=== PATIENT | male | born 1965 | race Caucasian/White ===

== ENCOUNTER 2022-08-02 17:24 | Outpatient (CLI) | payer MEDICARE, MEDICAID, SELFPAY | END 2022-08-02 17:25 | disposition home or self-care (01) | LOC: AMB 08-04 07:02 | PROVIDERS: PCP Family Medicine; Visit Provider Family Medicine | DX: R55 Syncope and collapse (principal) | CPT/HCPCS: A0425; A0427 ==

== ENCOUNTER 2022-08-02 17:54 | Observation (INO) | payer MEDICARE, MEDICAID, SELFPAY ==
[2022-08-02] VITALS (36 sets, daily range): BP systolic 87–131; BP diastolic 59–98; PULSE 92–109; RESP 24; TEMP 36.6; O2SAT 89–98; BMI 28.1
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
--- NOTE | 2022-08-02 18:32 | CRLHL7_ITS ---
For Patients: As a result of the Cures Act, medical imaging exams and procedure reports are released immediately into your electronic medical record. You may view this report before your referring provider. If you have questions, please contact your health care provider. INDICATION: Syncope. TECHNIQUE: Chest 1 view. COMPARISON: None. FINDINGS: Probable tiny right pleural effusion. Subtle patchy opacity in the right lung base suspicious for pneumonia. Minimal left basilar atelectasis. No pneumothorax. Normal heart size and pulmonary vascularity. The bones are unremarkable. IMPRESSION: 1. Subtle patchy opacity in the right lung base suspicious for pneumonia. 2. Probable tiny right pleural effusion. Dictated by Robina Soto MD @ 08/02/2022 7:58:33 PM (Electronically Signed)
--- NOTE | 2022-08-02 18:32 | CRLHL7_ITS ---
For Patients: As a result of the Century Cures Act, medical imaging exams and procedure reports are released immediately into your electronic medical record. You may view this report before your referring provider. If you have questions, please contact your health care provider. INDICATION: Syncope. TECHNIQUE: Noncontrast CT images acquired through the brain. COMPARISON: None. FINDINGS: Motion artifact degrades image quality. The ventricles and sulci are within normal limits for patient age. No mass effect or midline shift. The colby-white differentiation is maintained. No acute intracranial hemorrhage or pathologic extra-axial fluid collection. Mild atherosclerotic calcifications in the carotid siphons. The globes are symmetric. The calvarium is intact. Air-fluid levels and mucosal thickening in the maxillary sinuses, more pronounced on the left. The mastoid air cells are clear. IMPRESSION: 1. No acute intracranial hemorrhage or mass effect. 2. Air-fluid levels and mucosal thickening in the maxillary sinuses, more pronounced on the left, can be seen in the setting of acute sinusitis. Please note that all CT scans at this facility use dose modulation, iterative reconstruction, and/or weight-based dosing when appropriate to reduce radiation dose to as low as reasonably achievable. Dictated by Lorne Medley MD @ 08/02/2022 8:09:51 PM (Electronically Signed)
[2022-08-02 19:34] LABS: Lactate* 1.7 mmol/L (0.5-1.9)
[2022-08-02 19:40] LABS: Hematocrit 42.3 % (37.0-53.0); Hemoglobin* 14.6 gm/dL (13.5-17.5); Lymphocytes Percent Auto 8.2 % (20-44); Mean Corpuscular HGB Conc 35 gm/dL (32-36); Mean Corpuscular Hemoglobin 31 pg (26-34); Mean Corpuscular Volume 91 fL (80-100); Neutrophils Percent Auto 86.4 % (42.0-72.0); Platelet Count* 223 K/uL (140-440); Red Blood Count 4.66 m/uL (4.30-5.90); White Blood Count* 17.35 K/uL (4.50-11.00)
[2022-08-02 19:41] LABS: Basophils Percent Auto 0.2 % (0.0-3.0); Eosinophils Percent Auto 0.1 % (0.0-7.0); Immature Granulocytes Pct Auto 0.2 %; Monocytes Percent Auto 4.9 % (0.0-11.0); Slide Review Reflex No
[2022-08-02 19:42] LABS: Troponin, Point-of-Care* 0.01 ng/ml (0.01-0.04)
[2022-08-02 20:05] LABS: Magnesium* 1.7 mg/dL (1.5-2.6)
[2022-08-02 20:06] LABS: D Dimer Quantitative* 1.53 ug/ml (0.00-0.50)
--- NOTE | 2022-08-02 20:14 | ED.NURSE ---
Patient was able to ambulate to the restroom without dizziness
[2022-08-02 20:16] LABS: Troponin I* 0.03 ng/mL (0.01-0.04)
--- NOTE | 2022-08-02 20:19 | CRLHL7_ITS ---
For Patients: As a result of the Century Cures Act, medical imaging exams and procedure reports are released immediately into your electronic medical record. You may view this report before your referring provider. If you have questions, please contact your health care provider. INDICATION: Syncope, elevated D-dimer.. TECHNIQUE: CT chest PE was acquired with 95 cc Isovue 370 IV contrast. COMPARISON: None. FINDINGS: Heart and vasculature: Contrast opacification of the pulmonary arterial tree is adequate. No sign of pulmonary embolism. Heart size is normal. Thoracic aorta and pulmonary artery are normal in caliber. Lungs and pleura: Diffuse nodular ground-glass opacities are identified especially in the right hemithorax. A few smaller nodular ground-glass opacities noted in the left hemithorax. Bronchial wall thickening is noted. No pleural effusions, pleural thickening, or pneumothorax. Lymph nodes/mediastinum: Right hilar adenopathy is noted. Subcarinal adenopathy is also identified. Chest wall: No masses. Upper abdomen: Hypodense lesion in the left hepatic lobe likely cyst. Diffuse nodular thickening of the right adrenal gland. Bones: Unremarkable for age. IMPRESSION: Diffuse nodular ground-glass opacities in the right hemithorax likely related to infectious/inflammatory etiology. Diffuse mild bronchial wall thickening is also noted likely related to infectious/inflammatory etiology as well. No pulmonary embolism identified. Please note that all CT scans at this facility use dose modulation, iterative reconstruction, and/or weight-based dosing when appropriate to reduce radiation dose to as low as reasonably achievable. Dictated by Radha Finch MD @ 08/02/2022 9:55:58 PM (Electronically Signed)
[2022-08-02 20:22] LABS: Appearance Urine Clear (Clear); Bilirubin Urine Negative (Negative); Blood Urine Trace-intact (Negative); Color Urine Yellow (Yellow); Glucose Urine Negative (Negative); Ketones Urine Negative (Negative); Leukocyte Esterase Urine Negative (Negative); Nitrite Urine Negative (Negative); Protein Urine Negative (Negative); Specific Gravity Urine 1.015 (1.000-1.030); Urobilinogen Urine 0.2 (0.2-1.0); pH Urine 5.5 (5.0-8.5)
[2022-08-02 20:25] LABS: Chloride* 99 mmol/L (96-114)
[2022-08-02 20:26] LABS: Potassium* 3.4 mmol/L (3.6-5.1); Sodium* 131 mmol/L (135-149)
[2022-08-02 20:28] LABS: Bilirubin Total* 0.6 mg/dL (0.1-1.5); Carbon Dioxide* 25 mmol/L (20-32); Creatinine* 0.7 mg/dL (0.5-1.5); Est. Creatinine Clearance* 115.36; Estimated Glomerular Filt Rate 109 ml/min
[2022-08-02 20:28] LABS: Amphetamine Screen Urine Negative (Negative); Barbiturate Screen Urine Negative (Negative); Benzodiazepines Screen Urine Negative (Negative); Cocaine Screen Urine Negative (Negative); Methadone Screen Urine Negative (Negative); Methamphetamines Screen Urine Negative (Negative); Opiate Screen Urine Negative (Negative); Oxycodone Screen Urine Negative (Negative); Phencyclidine Screen Urine Negative (Negative)
[2022-08-02 20:29] LABS: Alanine Aminotransferase* 20 U/L (4-50); Alkaline Phosphatase* 69 U/L (40-150); Aspartate Amino Transferase* 22 U/L (12-35); Blood Urea Nitrogen* 15 mg/dL (7-30); Glucose* 118 mg/dL (60-115); Total Protein* 6.5 g/dL (6.0-8.3)
[2022-08-02 20:30] LABS: Calcium* 8.5 mg/dL (8.4-10.6)
[2022-08-02 20:32] LABS: C Reactive Protein* 7.5 mg/dL (0.5-1.0); Ethanol* < 0.01 % (0.01-0.03); NT Pro B Type NatriureticPept* 391 pg/mL
[2022-08-02 20:32] LABS: RBC Urine 0-2 (0-2); WBC Urine 0-2 (0-5)
[2022-08-02 20:37] LABS: Cannabinoid Screen Urine POSITIVE (Negative); Tricyclic Antidepressant Urine POSITIVE (Negative)
[2022-08-02] MEDS: DOXYCYCLINE HYCLATE 100 MG in 0.9 % SODIUM CHLORIDE Mini-bag 100 ML IVPB (23:06)
[2022-08-02 23:20] LABS: SARS PCR* Negative SARS-CoV-2 (Negative)
--- NOTE | 2022-08-02 23:25 | ED.NURSE ---
Jayjay paged for adminision
--- NOTE | 2022-08-02 23:59 | ED.NURSE ---
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
[2022-08-03] VITALS (12 sets, daily range): BP systolic 104–131; BP diastolic 66–86; PULSE 89–109; RESP 12–22; TEMP 36.6–37.1; O2SAT 92–99; BMI 29.2
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
[2022-08-03] MEDS: 0.9 % SODIUM CHLORIDE 1000 ml 1,000 ML 125 ML IV (00:49)
[2022-08-03] MEDS: cefTRIAXone 2 GM in 0.9 % SODIUM CHLORIDE Mini-bag 100 ML IVPB (00:49)
[2022-08-03 06:15] LABS: Hematocrit 39.5 % (37.0-53.0); Hemoglobin* 13.8 gm/dL (13.5-17.5); Mean Corpuscular HGB Conc 35 gm/dL (32-36); Mean Corpuscular Hemoglobin 32 pg (26-34); Mean Corpuscular Volume 91 fL (80-100); Platelet Count* 214 K/uL (140-440); Red Blood Count 4.36 m/uL (4.30-5.90); White Blood Count* 15.39 K/uL (4.50-11.00)
[2022-08-03 06:16] LABS: Basophils Percent Auto 0.2 % (0.0-3.0); Eosinophils Percent Auto 0.2 % (0.0-7.0); Lymphocytes Percent Auto 19.3 % (20-44); Neutrophils Percent Auto 76.2 % (42.0-72.0); Slide Review Reflex No
[2022-08-03 06:17] LABS: Alanine Aminotransferase* 20 U/L (4-50); Albumin* 3.7 g/dL (3.3-5.0); Aspartate Amino Transferase* 19 U/L (12-35); Bilirubin Total* 0.7 mg/dL (0.1-1.5); Blood Urea Nitrogen* 11 mg/dL (7-30); Calcium* 8.4 mg/dL (8.4-10.6); Carbon Dioxide* 26 mmol/L (20-32); Chloride* 102 mmol/L (96-114); Creatinine* 0.7 mg/dL (0.5-1.5); Est. Creatinine Clearance* 115.36; Estimated Glomerular Filt Rate 109 ml/min; Glucose* 136 mg/dL (60-115); Potassium* 3.4 mmol/L (3.6-5.1); Sodium* 135 mmol/L (135-149); Total Protein* 5.9 g/dL (6.0-8.3)
[2022-08-03 06:18] LABS: Alkaline Phosphatase* 68 U/L (40-150)
--- NOTE | 2022-08-03 06:38 | PC.NURSE ---
pleasant and cooperative. Wheezes auscultated in posterior lung burgos. Pt current every day smoker, states he has had a cough for the last week but doesn?t seem to be able to cough anything up. ?Tele = NSR.
--- NOTE | 2022-08-03 08:28 | CRLHL7_ITS ---
For Patients: As a result of the Century Cures Act, medical imaging exams and procedure reports are released immediately into your electronic medical record. You may view this report before your referring provider. If you have questions, please contact your health care provider. Indication: Syncope Technique: Noncontrast sagittal T1 weighted, axial FLAIR, axial T2 weighted, and axial diffusion weighted sequences are provided. Comparison: CT head 08/02/2022 Findings: The ventricles, sulci and gyri are normal size, shape and contour for age. The midline structures are centrally located with no evidence of shift. Few scattered foci of FLAIR signal hyperintensity in the supratentorial white matter are nonspecific but may be secondary to migraine headaches or small vessel disease. No evidence of pathologic susceptibility artifacts. There are no suspicious intra or extra-axial fluid collections. No region of restricted diffusion. Expected flow voids in the cavernous carotids and basilar artery. Moderate mucosal thickening in the left maxillary sinus and mild mucosal thickening in the right maxillary sinus. Air-fluid level in the left maxillary sinus. Rightward deviation of the nasal septum. Findings discussed with Dr. Braber at 1:22 p.m. Impression: 1. No acute intracranial abnormality. 2. Few punctate foci of T2 prolongation in the supratentorial white matter are nonspecific. Differential considerations include sequela of migraine headaches and small vessel disease. 3. Air-fluid level in the left maxillary sinus. Please correlate for acute sinus disease. Dictated by Sean Turcios MD @ 08/03/2022 1:23:02 PM (Electronically Signed)
[2022-08-03] MEDS: hydroCHLOROthiazide 25 MG TABLET PO (09:00)
[2022-08-03] MEDS: VILAZODONE 40 MG PO (09:00)
[2022-08-03] MEDS: BUSPIRONE 10 MG TABLET 30 MG PO ×2 (09:00→20:40)
[2022-08-03] MEDS: OMEPRAZOLE 20 MG CAPSULE DR PO (09:00)
[2022-08-03] MEDS: lisinopriL 5 MG TABLET PO (09:00)
[2022-08-03] MEDS: CLOZAPINE 100 MG TABLET PO ×2 (09:00→20:41)
[2022-08-03 09:05] LABS: Procalcitonin* 1.11 ng/mL (<0.50)
--- NOTE | 2022-08-03 10:51 | P.IMHP_ITS ---
Hospitalist- H&P: HPI History of Present Illness Date Seen: 08/03/22 Chief complaint: Syncope Narrative: Jose Cameron is a 56 year old male that was brought to the ER by EMS on 08/02 after losing consciousness while swimming in a pool yesterday. The event was witnessed in people were able to get him out of the pool immediately, he then regained consciousness and was awake during EMS transport. Patient notices that over the past few weeks has had a few spells of syncope; notes preceding dizziness but no palpitations or chest pain. He has not had any headaches. He is unsure if there have been any alleviating or aggravating factors. ER course and findings: - no acute findings on head CT, possible left-sided sinusitis - elevated white blood count at 17 - diffuse nodular ground-glass opacities in the right hemithorax likely related to infectious/inflammatory etiology (similar findings on recent outpatient CT of the chest, performed as screening) - bifascicular block on EKG in ER Patient was admitted overnight by the hospitalist and telemetry has remained unremarkable. This morning, Jose has no concerns for the hospitalist team. He has not had any recurrence of his syncope, tolerating po intake. Past Medical history updated below after chart review. Patient's PCP is Dr. Byrd at [facility] in [place], Dr. Cornejo in [place] is Psychiatrist. Jose is also under the care of [facility] who helps him with medication management/compliance. Review of Systems Status of ROS: Reports: 10 or more systems reviewed and unremarkable except as noted in History and below Narrative: No headaches or visual changes. No Chest pain. No GI or symptoms. [facility] Medical History (Updated 08/03/22 @ 11:35 by Josephine Barber MD) Tobacco use ?Z72.0 - Tobacco use (ICD-10) Anxiety ?F41.9 - Anxiety disorder, unspecified (ICD-10) Schizophrenia ?F20.9 - Schizophrenia, unspecified (ICD-10) Social History (Updated 08/03/22 @ 10:54 by Josephine Barber MD) Narrative: Jose is single, no children. 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 Smoking about 1ppd, no concerning ETOH use. Brother in [place] would be medical decision maker if needed. Full Code. Smoking Status: Current every day smoker What tobacco products do you use: cigarettes Smoking packs per day: 1 Smoking cigarettes per day: 20.0 Years smoked: 37 Smoking pack-years: 37.00 Do you use any of these nicotine containing products: E-Cigarettes and Vaping Products Second hand tobacco smoke exposure: No How often do you have a drink containing alcohol: monthly or less Alcohol type: beer How many standard drinks containing alcohol do you have on a typical day: 1 or 2 How often do you have six or more drinks on one occasion: Never AUDIT-C Alcohol total score: 1 Non-prescribed substance use: denies use service: No Meds Home Medications and Allergies Home Medication Comments: Patient's medlist was not updated in our computer system: - Clozaril 100mg AM, 250mg PM - Buspar 30mg BID - Desmopression 0.2mg HS - HCTZ 25mg Qd - Lisinopril 5mg Qd - Nexium 20mg Qd - Vilazodone 40mg Qd - Zocor 20mg HS - Calcium/Magnesium/Zinc - B12 1mg daily Allergies Allergy/AdvReac Type Severity Reaction Status Date / Time haloperidol [From Haldol] Allergy Verified 08/02/22 18:01 Exam Narrative: Exam Narrative: GEN: Alert and sitting comfortably in bedside chair, eating breakfast. Nontoxic HEENT: Pupils miotic bilaterally, EOMIs bilaterally, no scleral icterus CV: RRR, soft systolic murmur without concerning features heard at left sternal border, no carotid bruits R: Fine rales right base, no wheezing, air movement adequate Ext: wwp, no concerning edema Skin: No concerning skin lesions or rashes on exposed skin Neuro: No focal deficits, no resting tremor, gait not observed Psych: Appropriate Const: Vital Signs, click to edit/add: Vital Signs - 24 hr 08/02/22 18:02 08/02/22 18:18 08/02/22 18:30 Temperature 97.8 F Pulse Rate 101 H 101 H Pulse Rate [Pulse Oximeter] 102 H Pulse Rate [orthos tatic lying] Pulse Rate [orthos tatic sitting] Pulse Rate [orthos tatic standing] Respiratory Rate 24 Blood Pressure Blood Pressure [Le ft Arm] Blood Pressure [Ri ght Upper Arm] 112/78 Blood Pressure [or thostatic lying Le ft Arm] Blood Pressure [or thostatic sitting Left Arm] Blood Pressure [or thostatic standing Left Arm] Pulse Oximetry 92 93 95 Oxygen Delivery Me thod Nasal Cannula Oxygen Flow Rate 2 08/02/22 18:32 08/02/22 18:33 08/02/22 18:44 Temperature Pulse Rate 99 99 Pulse Rate [Pulse Oximeter] Pulse Rate [orthos tatic lying] 93 Pulse Rate [orthos tatic sitting] 102 H Pulse Rate [orthos tatic standing] 109 H Respiratory Rate Blood Pressure 87/70 L 110/59 L Blood Pressure [Le ft Arm] Blood Pressure [Ri ght Upper Arm] Blood Pressure [or thostatic lying Le ft Arm] 101/65 Blood Pressure [or thostatic sitting Left Arm] 110/90 H Blood Pressure [or thostatic standing Left Arm] 131/98 H Pulse Oximetry 96 96 Oxygen Delivery Me thod Oxygen Flow Rate 08/02/22 18:45 08/02/22 19:02 08/02/22 19:32 Temperature Pulse Rate 97 Pulse Rate [Pulse Oximeter] Pulse Rate [orthos tatic lying] Pulse Rate [orthos tatic sitting] Pulse Rate [orthos tatic standing] Respiratory Rate Blood Pressure 109/63 99/63 Blood Pressure [Le ft Arm] Blood Pressure [Ri ght Upper Arm] Blood Pressure [or thostatic lying Le ft Arm] Blood Pressure [or thostatic sitting Left Arm] Blood Pressure [or thostatic standing Left Arm] Pulse Oximetry 95 Oxygen Delivery Me thod Oxygen Flow Rate 08/02/22 19:43 08/02/22 19:45 08/02/22 19:57 Temperature Pulse Rate 92 93 98 Pulse Rate [Pulse Oximeter] Pulse Rate [orthos tatic lying] Pulse Rate [orthos tatic sitting] Pulse Rate [orthos tatic standing] Respiratory Rate Blood Pressure 101/65 Blood Pressure [Le ft Arm] Blood Pressure [Ri ght Upper Arm] Blood Pressure [or thostatic lying Le ft Arm] Blood Pressure [or thostatic sitting Left Arm] Blood Pressure [or thostatic standing Left Arm] Pulse Oximetry 98 98 94 Oxygen Delivery Me thod Oxygen Flow Rate 08/02/22 19:59 08/02/22 20:00 08/02/22 20:01 Temperature Pulse Rate 106 H 106 H Pulse Rate [Pulse Oximeter] Pulse Rate [orthos tatic lying] Pulse Rate [orthos tatic sitting] Pulse Rate [orthos tatic standing] Respiratory Rate Blood Pressure 110/90 H 131/98 H Blood Pressure [Le ft Arm] Blood Pressure [Ri ght Upper Arm] Blood Pressure [or thostatic lying Le ft Arm] Blood Pressure [or thostatic sitting Left Arm] Blood Pressure [or thostatic standing Left Arm] Pulse Oximetry 94 95 Oxygen Delivery Me thod Oxygen Flow Rate 08/02/22 20:07 08/02/22 20:15 08/02/22 20:30 Temperature Pulse Rate 96 100 100 Pulse Rate [Pulse Oximeter] Pulse Rate [orthos tatic lying] Pulse Rate [orthos tatic sitting] Pulse Rate [orthos tatic standing] Respiratory Rate Blood Pressure Blood Pressure [Le ft Arm] Blood Pressure [Ri ght Upper Arm] Blood Pressure [or thostatic lying Le ft Arm] Blood Pressure [or thostatic sitting Left Arm] Blood Pressure [or thostatic standing Left Arm] Pulse Oximetry 95 92 92 Oxygen Delivery Me thod Oxygen Flow Rate 08/02/22 20:32 08/02/22 20:45 08/02/22 21:00 Temperature Pulse Rate 99 98 98 Pulse Rate [Pulse Oximeter] Pulse Rate [orthos tatic lying] Pulse Rate [orthos tatic sitting] Pulse Rate [orthos tatic standing] Respiratory Rate Blood Pressure 100/68 Blood Pressure [Le ft Arm] Blood Pressure [Ri ght Upper Arm] Blood Pressure [or thostatic lying Le ft Arm] Blood Pressure [or thostatic sitting Left Arm] Blood Pressure [or thostatic standing Left Arm] Pulse Oximetry 93 92 95 Oxygen Delivery Me thod Oxygen Flow Rate 08/02/22 21:01 08/02/22 21:17 08/02/22 21:30 Temperature Pulse Rate 98 95 97 Pulse Rate [Pulse Oximeter] Pulse Rate [orthos tatic lying] Pulse Rate [orthos tatic sitting] Pulse Rate [orthos tatic standing] Respiratory Rate Blood Pressure 112/75 Blood Pressure [Le ft Arm] Blood Pressure [Ri ght Upper Arm] Blood Pressure [or thostatic lying Le ft Arm] Blood Pressure [or thostatic sitting Left Arm] Blood Pressure [or thostatic standing Left Arm] Pulse Oximetry 91 89 94 Oxygen Delivery Me thod Oxygen Flow Rate 08/02/22 21:31 08/02/22 21:45 08/02/22 22:00 Temperature Pulse Rate 96 99 96 Pulse Rate [Pulse Oximeter] Pulse Rate [orthos tatic lying] Pulse Rate [orthos tatic sitting] Pulse Rate [orthos tatic standing] Respiratory Rate Blood Pressure 107/69 Blood Pressure [Le ft Arm] Blood Pressure [Ri ght Upper Arm] Blood Pressure [or thostatic lying Le ft Arm] Blood Pressure [or thostatic sitting Left Arm] Blood Pressure [or thostatic standing Left Arm] Pulse Oximetry 94 95 93 Oxygen Delivery Me thod Oxygen Flow Rate 08/02/22 22:01 08/02/22 22:15 08/02/22 22:30 Temperature Pulse Rate 95 99 102 H Pulse Rate [Pulse Oximeter] Pulse Rate [orthos tatic lying] Pulse Rate [orthos tatic sitting] Pulse Rate [orthos tatic standing] Respiratory Rate Blood Pressure 110/75 Blood Pressure [Le ft Arm] Blood Pressure [Ri ght Upper Arm] Blood Pressure [or thostatic lying Le ft Arm] Blood Pressure [or thostatic sitting Left Arm] Blood Pressure [or thostatic standing Left Arm] Pulse Oximetry 92 91 91 Oxygen Delivery Me thod Oxygen Flow Rate 08/02/22 22:32 08/02/22 22:33 08/02/22 22:45 Temperature Pulse Rate 102 H 103 H 101 H Pulse Rate [Pulse Oximeter] Pulse Rate [orthos tatic lying] Pulse Rate [orthos tatic sitting] Pulse Rate [orthos tatic standing] Respiratory Rate Blood Pressure 109/74 Blood Pressure [Le ft Arm] Blood Pressure [Ri ght Upper Arm] Blood Pressure [or thostatic lying Le ft Arm] Blood Pressure [or thostatic sitting Left Arm] Blood Pressure [or thostatic standing Left Arm] Pulse Oximetry 91 94 91 Oxygen Delivery Me thod Oxygen Flow Rate 08/02/22 23:00 08/02/22 23:02 08/02/22 23:15 Temperature Pulse Rate 104 H 105 H 104 H Pulse Rate [Pulse Oximeter] Pulse Rate [orthos tatic lying] Pulse Rate [orthos tatic sitting] Pulse Rate [orthos tatic standing] Respiratory Rate Blood Pressure 108/62 Blood Pressure [Le ft Arm] Blood Pressure [Ri ght Upper Arm] Blood Pressure [or thostatic lying Le ft Arm] Blood Pressure [or thostatic sitting Left Arm] Blood Pressure [or thostatic standing Left Arm] Pulse Oximetry 92 92 91 Oxygen Delivery Me thod Room Air Oxygen Flow Rate 08/03/22 00:42 08/03/22 00:42 08/03/22 01:25 Temperature 98.6 F Pulse Rate 91 Pulse Rate [Pulse Oximeter] Pulse Rate [orthos tatic lying] Pulse Rate [orthos tatic sitting] Pulse Rate [orthos tatic standing] Respiratory Rate 22 22 Blood Pressure Blood Pressure [Le ft Arm] 108/72 Blood Pressure [Ri ght Upper Arm] Blood Pressure [or thostatic lying Le ft Arm] Blood Pressure [or thostatic sitting Left Arm] Blood Pressure [or thostatic standing Left Arm] Pulse Oximetry 94 96 Oxygen Delivery Me thod Room Air Room Air Oxygen Flow Rate 08/03/22 03:00 08/03/22 07:00 08/03/22 07:00 Temperature 98.3 F Pulse Rate 104 H Pulse Rate [Pulse Oximeter] 89 104 H Pulse Rate [orthos tatic lying] Pulse Rate [orthos tatic sitting] Pulse Rate [orthos tatic standing] Respiratory Rate 22 12 Blood Pressure Blood Pressure [Le ft Arm] 104/66 Blood Pressure [Ri ght Upper Arm] Blood Pressure [or thostatic lying Le ft Arm] Blood Pressure [or thostatic sitting Left Arm] Blood Pressure [or thostatic standing Left Arm] Pulse Oximetry 96 Oxygen Delivery Me thod Room Air Oxygen Flow Rate 08/03/22 07:00 Temperature 98.2 F Pulse Rate Pulse Rate [Pulse Oximeter] 104 H Pulse Rate [orthos tatic lying] Pulse Rate [orthos tatic sitting] Pulse Rate [orthos tatic standing] Respiratory Rate 12 Blood Pressure Blood Pressure [Le ft Arm] 123/85 Blood Pressure [Ri ght Upper Arm] Blood Pressure [or thostatic lying Le ft Arm] Blood Pressure [or thostatic sitting Left Arm] Blood Pressure [or thostatic standing Left Arm] Pulse Oximetry 92 Oxygen Delivery Me thod Room Air Oxygen Flow Rate Hospitalist - H&P: Result Labs Labs: Short CBC 08/02/22 08/03/22 Range/Units 19:20 01:45 WBC 17.35 H 15.39 H (4.50-11.00) K/uL Hgb 14.6 13.8 (13.5-17.5) gm/dL Hct 42.3 39.5 (37.0-53.0) % Plt Count 223 214 (140-440) K/uL BMP 08/02/22 08/03/22 19:20 01:45 Sodium 131 L 135 Potassium 3.4 L 3.4 L Chloride 99 102 Carbon Dioxide 25 26 BUN 15 11 Creatinine 0.7 0.7 Glucose 118 H 136 H Calcium 8.5 8.4 Cardiac Enzymes 08/02/22 Range/Units 19:20 Troponin I 0.03 (0.01-0.04) ng/mL Liver Function 08/02/22 08/03/22 Range/Units 19:20 01:45 Total Bilirubin 0.6 0.7 (0.1-1.5) mg/dL AST 22 19 (12-35) U/L ALT 20 20 (4-50) U/L Alkaline Phosphatase 69 68 (40-150) U/L Albumin 4.0 3.7 (3.3-5.0) g/dL Urine 08/02/22 Range/Units 20:08 Urine Color Yellow (Yellow) Urine Appearance Clear (Clear) Urine pH 5.5 (5.0-8.5) Ur Specific [place] 1.015 (1.000-1.030) Urine Protein Negative (Negative) Urine Glucose (UA) Negative (Negative) Assessment and Plan Assessment and plan (1) Syncope: Problem comment: - ddx: Vasovagal, intracranial process, cardiac source, acute illness - will obtain TTE and MRI today to further evaluate - orthostatic BPs - continue telemetry Status: Acute (2) Sinusitis: Problem comment: - noted on CT 08/02 - on Doxycycline Status: Acute (3) Anxiety: Problem comment: - quiescent Status: Acute (4) Tobacco use: Problem comment: - amenable to nicotine patch while in the hospital Status: Acute (5) Schizophrenia: Problem comment: - quiescent - continue home medications Status: Acute (6) Community acquired pneumonia: Problem comment: - likely new finding given symptoms, elevated WBC, elevated procalcitonin - continue Rocephin and Doxy (08/02) Status: Acute (7) Leukocytosis: Problem comment: - 17 on admission 08/02, likely related to new infectious process - intermittent leukocytosis as an outpatient on chart review (iatrogenic) Status: Acute Plan - continue antibiotics - Lovenox for ppx - studies per above - home when medically stable, possible as early as tomorrow
[2022-08-03] MEDS: NICOTINE 7 MG PATCH 1 PATCH TRANSDERMA (13:09)
[2022-08-03] MEDS: DOXYCYCLINE HYCLATE 100 MG CAPSULE PO ×2 (13:09→20:40)
[2022-08-03] MEDS: SODIUM CHLORIDE 0.9 % (FLUSH) 10 ML SYRINGE 5 ML IVF ×2 (13:10→20:45)
--- NOTE | 2022-08-03 17:54 | PC.NURSE ---
Patient is alert and oriented x 4, on RA, vss with exception of elevated HR, up ad junior, saline locked, tele monitor. BL lung sounds crackly, elevated WBC (17). MRI done this morning and cardio Echo done this afternoon. Orthostatic BP's completed - negative. Patient denies pain, no complaint or episodes of syncope today. Intake and output within excepted levels.
[2022-08-03] MEDS: ENOXAPARIN 40 MG/0.4 ML INJ SUBCUT (20:40)
[2022-08-03] MEDS: CLOZAPINE 50 MG PO (20:43)
[2022-08-03] MEDS: DESMOPRESSIN 0.2 MG TAB PO (20:44)
[2022-08-03] MEDS: FLUTICASONE PROPIONATE NASAL 1 SPRAY NOSTRIL-B (20:46)
[2022-08-03] MEDS: SIMVASTATIN 20 MG TABLET PO (20:47)
[2022-08-04] MEDS: cefTRIAXone 2 GM in 0.9 % SODIUM CHLORIDE Mini-bag 100 ML IVPB (00:28)
[2022-08-04 04:30] VITALS: BP 123/83; PULSE 97; RESP 18; TEMP 36.8; O2SAT 95
--- NOTE | 2022-08-04 06:05 | PC.NURSE ---
End of shift note: Pt alert and oriented, pleasant and conversational during interactions. Vitals stable, on RA, afebrile. HR remained mid to high 90sbpm for majority of shift, up to 120s with movement this AM but not sustained. Tele, SR to ST w/ BBB. Denies pain. Tolerating diet, denies nausea, requested to keep a couple food items at bedside from dinner tray, adequate appetite. Turns in bed independently, and up ad junior. Voiding. Received IV Rocephin this shift. Brother ?Blake? updated at beginning of shift, states he can provide pt ride home from hospital if needed when pt medically cleared, pt aware. Slept for majority of shift. Pt has call light within reach.?
[2022-08-04] MEDS: OMEPRAZOLE 20 MG CAPSULE DR PO (06:32)
[2022-08-04 06:48] LABS: Basophils Percent Auto 0.5 % (0.0-3.0); Eosinophils Percent Auto 0.4 % (0.0-7.0); Hematocrit 40.2 % (37.0-53.0); Hemoglobin* 13.7 gm/dL (13.5-17.5); Immature Granulocytes Pct Auto 0.2 %; Lymphocytes Percent Auto 23.5 % (20-44); Mean Corpuscular HGB Conc 34 gm/dL (32-36); Mean Corpuscular Hemoglobin 31 pg (26-34); Mean Corpuscular Volume 92 fL (80-100); Monocytes Percent Auto 6.6 % (0.0-11.0); Neutrophils Percent Auto 68.8 % (42.0-72.0); Platelet Count* 229 K/uL (140-440); RDW Coefficient of Variation % 14.7 % (11.5-15.5); Red Blood Count 4.36 m/uL (4.30-5.90); White Blood Count* 11.09 K/uL (4.50-11.00)
[2022-08-04 07:00] VITALS: BP 128/90; PULSE 103; PULSE 76; RESP 16; TEMP 36.4; O2SAT 96
[2022-08-04 07:01] LABS: Slide Review Reflex No
[2022-08-04 07:16] LABS: Chloride* 109 mmol/L (96-114)
[2022-08-04 07:17] LABS: Potassium* 3.9 mmol/L (3.6-5.1); Sodium* 140 mmol/L (135-149)
[2022-08-04 07:19] LABS: Creatinine* 0.7 mg/dL (0.5-1.5); Est. Creatinine Clearance* 115.36; Estimated Glomerular Filt Rate 109 ml/min
[2022-08-04 07:20] LABS: Blood Urea Nitrogen* 18 mg/dL (7-30); Calcium* 8.6 mg/dL (8.4-10.6); Carbon Dioxide* 25 mmol/L (20-32); Glucose* 123 mg/dL (60-115)
[2022-08-04 07:37] LABS: Procalcitonin* 0.69 ng/mL (<0.50)
[2022-08-04] MEDS: hydroCHLOROthiazide 25 MG TABLET PO (09:11)
[2022-08-04] MEDS: DOXYCYCLINE HYCLATE 100 MG CAPSULE PO (09:11)
[2022-08-04] MEDS: CYANOCOBALAMIN (VITAMIN B-12) 500 MCG TABLET 1000 MCG PO (09:11)
[2022-08-04] MEDS: BUSPIRONE 10 MG TABLET 30 MG PO (09:11)
[2022-08-04] MEDS: lisinopriL 5 MG TABLET PO (09:11)
[2022-08-04] MEDS: CLOZAPINE 100 MG TAB PO (09:12)
[2022-08-04] MEDS: SODIUM CHLORIDE 0.9 % (FLUSH) 10 ML SYRINGE 5 ML IVF (09:13)
[2022-08-04] MEDS: VILAZODONE 40 MG PO (09:27)
--- NOTE | 2022-08-04 10:25 | PM.DS1 ---
DS: Providers Provider Date Seen: 08/04/22 Date of admission: 08/03/22 00:01 Primary care physician: Prema River MD Admitting Clinician: Selwyn Broussard MD Attending Physician on discharge: Josephine Barber MD Date of Discharge: 08/04/22 DS: Diagnosis Discharge Diagnosis (1) Syncope: Status: Acute Problem details: - ddx: Vasovagal, intracranial process, cardiac source, acute illness - no recurrence of syncope throughout hospital stay - no evidence of orthostatic hypotension, reassuring brain MRI, reassuring TTE (results below) - Patient's telemetry remained normal, repeat EKG Final Impressions: 1. Normal left ventricular size, mildly increased wall thickness, low normal global systolic function, calculated EF of 51 %. 2. Right ventricular cavity size is normal, global systolic RV function is normal. 3. Normal left atrium size. 4. The aortic valve is sclerotic, no stenosis and trivial regurgitation. 5. The mitral valve is sclerotic, trace mitral regurgitation. 6. Tricuspid valve is normal. 7. No pericardial effusion. (2) Sinusitis: Status: Acute Problem details: - noted on CT 08/02 - on Doxycycline (3) Anxiety: Status: Acute Problem details: - quiescent (4) Tobacco use: Status: Acute Problem details: - amenable to nicotine patch while in the hospital, (5) Schizophrenia: Status: Acute Problem details: - quiescent - continue home medications (6) Community acquired pneumonia: Status: Acute Problem details: - likely new finding given cough, elevated WBC, elevated procalcitonin on admission - treated with Rocephin and Doxy while inpatient, discharged (7) Leukocytosis: Status: Acute Problem details: - 17 on admission 08/02, - intermittent leukocytosis as an outpatient on chart review (iatrogenic) DS: Summary Hospital Course Hospital Course: 56-year-old male, admitted to the hospital after syncopal episode. Also noted to have cough, leukocytosis, elevated procalcitonin, abnormality on chest x-ray (although this may be chronic per chart review) - treated with Rocephin and doxycycline. Patient also incidentally noted to have left-sided sinusitis, asymptomatic from this. Regarding syncope: MRI, telemetry, TTE reassuring. Patient had no recurrence of symptoms during stay. Pharmacy noted the possibility of clozapine contributing to symptoms: Recommend outpatient follow-up with PCP and psychiatrist to discuss clozapine dosing and obtain drug level; consider cardiology referral pending symptoms. Patient back to baseline in medically appropriate for discharge on 08/04; discharged home with brother and close follow-up. Status at Discharge Cognitive/behavioral status at discharge: Baseline Functional status at discharge: independent ambulation Overall status at discharge: patient is progressing back to baseline Time Spent with Patient Time attestation: Total time spent providing and/or coordinating discharge services: Time spent: Greater than 30 minutes Exam Narrative: Exam Narrative: GEN: Alert and appropriate, sitting comfortably in bedside chair HEENT: Pupils miotic (unchanged from admission), EOMIs bilaterally, no scleral icterus CV: RRR, No concerning murmurs, rubs, or gallops R: LCTA bilaterally without concerning wheezing, air movement adequate Ext: wwp, no concerning edema Skin: No concerning skin lesions or rashes on exposed skin Neuro: No focal deficits Psych: Appropriate for chronic conditions Const: Vital Signs, click to edit/add: Vital Signs - 24 hr 08/03/22 11:00 08/03/22 12:37 08/03/22 15:00 Temperature 97.9 F Pulse Rate Pulse Rate [Pulse Oximeter] 91 104 H Pulse Rate [orthos tatic lying] 91 Pulse Rate [orthos tatic sitting] 97 Pulse Rate [orthos tatic standing] 102 H Respiratory Rate 12 12 Blood Pressure [Le ft Arm] 126/82 Blood Pressure [or thostatic lying Le ft Arm] 124/82 Blood Pressure [or thostatic sitting Left Arm] 123/84 Blood Pressure [or thostatic standing Left Arm] 127/86 Pulse Oximetry 96 Oxygen Delivery Me thod Room Air 08/03/22 15:00 08/03/22 17:38 08/03/22 19:00 Temperature 98.2 F 98.7 F Pulse Rate 109 H Pulse Rate [Pulse Oximeter] 99 105 H Pulse Rate [orthos tatic lying] Pulse Rate [orthos tatic sitting] Pulse Rate [orthos tatic standing] Respiratory Rate 12 16 Blood Pressure [Le ft Arm] 118/82 131/73 Blood Pressure [or thostatic lying Le ft Arm] Blood Pressure [or thostatic sitting Left Arm] Blood Pressure [or thostatic standing Left Arm] Pulse Oximetry 99 94 Oxygen Delivery Me thod Room Air Room Air 08/03/22 23:00 08/03/22 23:30 08/04/22 04:30 Temperature 98.3 F Pulse Rate 97 Pulse Rate [Pulse Oximeter] 105 H 97 Pulse Rate [orthos tatic lying] Pulse Rate [orthos tatic sitting] Pulse Rate [orthos tatic standing] Respiratory Rate 16 18 Blood Pressure [Le ft Arm] 123/83 Blood Pressure [or thostatic lying Le ft Arm] Blood Pressure [or thostatic sitting Left Arm] Blood Pressure [or thostatic standing Left Arm] Pulse Oximetry 95 Oxygen Delivery Me thod Room Air 08/04/22 07:00 08/04/22 07:00 08/04/22 07:00 Temperature 97.6 F Pulse Rate 103 H Pulse Rate [Pulse Oximeter] 76 76 Pulse Rate [orthos tatic lying] Pulse Rate [orthos tatic sitting] Pulse Rate [orthos tatic standing] Respiratory Rate 16 16 Blood Pressure [Le ft Arm] 128/90 H Blood Pressure [or thostatic lying Le ft Arm] Blood Pressure [or thostatic sitting Left Arm] Blood Pressure [or thostatic standing Left Arm] Pulse Oximetry 96 Oxygen Delivery Me thod Room Air DS: Data Data Completed and Pending Labs on day of discharge: Labs from last 24 hours 08/04/22 06:04 WBC 11.09 H RBC 4.36 Hgb 13.7 Hct 40.2 MCV 92 MCH 31 MCHC 34 RDW Coeff of Graciela 14.7 Plt Count 229 Neut % (Auto) 68.8 Lymph % (Auto) 23.5 [place] % (Auto) 6.6 Eos % (Auto) 0.4 Baso % (Auto) 0.5 Neut # (Auto) 7.60 H Lymph # (Auto) 2.60 [place] # (Auto) 0.70 Eos # (Auto) 0.00 Baso # (Auto) 0.10 Sodium 140 Potassium 3.9 Chloride 109 Carbon Dioxide 25 BUN 18 Creatinine 0.7 Estimated Creat Clear 115.36 Estimated GFR 109 Glucose 123 H Calcium 8.6 Procalcitonin 0.69 H Discharge Plan Discharge Disposition: Home, Self-Care Date of Admission: 08/03/22 00:01 Attending Provider on Discharge: Josephine Barber Primary Care Provider: Prema River Condition: Stable Anticipated Discharge Date/Time: 08/04/22 11:30 Discharge Medications: New doxycycline hyclate 100 mg Capsule 100 mg PO BID 7 Days Qty: 14 0RF lisinopril 5 mg Tablet 5 mg PO DAILY Qty: 30 0RF hydrochlorothiazide 25 mg Tablet 25 mg PO DAILY Qty: 30 0RF esomeprazole magnesium 20 mg capsule,delayed release(DR/EC) 20 mg PO DAILY Qty: 30 0RF Continued clozapine 100 mg tablet 200 mg PO QPM buspirone 30 mg tablet 30 mg PO BID clozapine 50 mg tablet 50 mg PO QPM desmopressin 0.2 mg tablet 0.2 mg PO QPM lisinopril 5 mg tablet 5 mg PO DAILY hydrochlorothiazide 25 mg tablet 25 mg PO DAILY fluticasone propionate 50 mcg/actuation spray,suspension 1 spray INTRANASAL BID esomeprazole magnesium 20 mg capsule,delayed release(DR/EC) 20 mg PO DAILY clozapine 100 mg tablet 100 mg PO QAM Discharge Orders: Discharge Order (Routine); Ordered 08/04/22 Ordered By: Josephine Barber Patient Education: Lisinopril (By mouth), Hydrochlorothiazide (By mouth) (Hydrocot, Microzide), Doxycycline (By mouth), Esomeprazole (By mouth), Syncope (DC) Additional Instructions: You had a NORMAL MRI of your head and a NORMAL ultrasound of your heart - good news! You do have a sinus infection and a mild pneumonia - one antibiotic will help with both of these infections and they were sent to [facility]. No other changes made to your home medications. See Dr. Byrd and Dr. Jimenez as scheduled to talk about your recent hospital stay - your fainting could be related to medications, or you may need to see a Maintenance Manager (quality assurance specialist) in followup. You NEED to return to the hospital if you have any more fainting, chest pain, or other concerns. Activity Level: Activity as Tolerated Discharge Diet: Regular Follow Up Appointments: Estefania Cornejo MD [Referring] - 08/25/22 7:45 am ([facility] for medication check, Clozapine level, with Dr. Cornejo.) Prema River MD [Primary Care Provider] - 08/13/22 11:45 am ([facility] to discuss syncope/possible cardiology referral, with Dr. River.) Forms: [employer] Info Instructions
[2022-08-04 11:03] VITALS: BP 108/62; PULSE 103; RESP 16; TEMP 36.4
[2022-08-04 12:14] VITALS: BP 130/88; PULSE 100; TEMP 36.6; O2SAT 96
[2022-08-04 12:18] VITALS: PULSE 76; RESP 16
--- NOTE | 2022-08-04 13:53 | PC.SOCIAL ---
Met with pt. and confirmed he has a keycase assembler through [facility] Marguerite Chisholm and has [facility] for medication management. [facility] was sent pt.'s discharge orders and summary.
== END 2022-08-04 12:00 | disposition home or self-care (01) ==
LOC: ED 23:45 → MEDSURG 08-03 00:02
PROVIDERS: Family Medicine; Student in an Organized Health Care Education/Training Program; Admitting Provider Family Medicine; Emergency Provider Family Medicine; PCP Family Medicine; Visit Provider Family Medicine
DX: R55 Syncope and collapse (principal); J01.90 Acute sinusitis, unspecified; J18.9 Pneumonia, unspecified organism; R74.8 Abnormal levels of other serum enzymes; D72.829 Elevated white blood cell count, unspecified; R91.8 Other nonspecific abnormal finding of lung field; R00.0 Tachycardia, unspecified; R06.2 Wheezing; R06.02 Shortness of breath; R05.9 Cough, unspecified; I34.0 Nonrheumatic mitral (valve) insufficiency; I45.2 Bifascicular block; F41.9 Anxiety disorder, unspecified; F20.9 Schizophrenia, unspecified; I10 Essential (primary) hypertension; H11.439 Conjunctival hyperemia, unspecified eye; F17.210 Nicotine dependence, cigarettes, uncomplicated; F17.290 Nicotine dependence, other tobacco product, uncomplicated
CPT/HCPCS: 36415; 70450; 70551; 71045; 71260; 80048; 80053; 80306; 81001; 82077; 83605; 83735; 83880; 84145; 84484; 85025; 85379; 86140; 87081; 87449; 87635; 93005; 93306; 94664; 94761; 96361; 96365; 96366; 96367; 96372; 96375; 99285; G0378; A9270; J0696; J1650; J7030; Q9967; S4990

== ENCOUNTER 2024-06-05 13:16 | Outpatient (CLI) | payer MEDICARE, MEDICAID, SELFPAY | END 2024-06-05 13:17 | disposition home or self-care (01) | LOC: AMB 06-07 09:06 | PROVIDERS: PCP Family Medicine; Visit Provider Family Medicine | DX: S09.90XA Unspecified injury of head, initial encounter (principal); W01.0XXA Fall on same level from slipping, tripping and stumbling without subsequent striking against object, initial encounter; Y92.513 Shop (commercial) as the place of occurrence of the external cause | CPT/HCPCS: A0998 ==

== ENCOUNTER 2025-03-10 10:05 | Emergency (ER) | payer MEDICARE, MEDICAID, SELFPAY ==
--- OUTSIDE RECORDS SUMMARY | 2025-03-10 10:07 | XMS_ITS | CCD ---
Author Organization Unknown Care Team Providers Care Certified Pediatric Nurse Practitioner Name Role Phone Branch Manager, [place] Primary Care Provider Unava ilable Unavailable Chronic Care Management Unavaila ble Summary Purpose [employer] Insurance Providers Payer name Policy type / Coverage type Covered alliance party ID Effective Begin Date Effective End Date [place] Part B [id number] Unknown Unknown [employer] Medicare Part B [id number] Unknown Unknown Family History Family History data not found Medication Administered No Medication Administered data Medical Equipment No Medical Equipment data Assessments No Assessment data Reason For Visit No Reason For Visit data Review of Systems No Review of Systems data Physical Exam No Physical Exam data History of Present Illness No History of Present Illness data Advance Directives No Advance Directive data
--- OUTSIDE RECORDS SUMMARY | 2025-03-10 10:08 | XMS_ITS | Clinical Summary ---
Author Organization [employer] [facility] Address [address] [place] [id number] Care Team Providers Care Chief Security Officer Name Role Phone Prema River MD Unavailable Prema River MD Primary Care Provider [phone] Allergies Active Allergy Reactions Criticality Noted Date Comments Aripiprazole Other - Describe In Comment Field 02/16/2021 Pt states 'caused me to lose my mind Haloperidol 10/15/2009 neuroleptic malignant syndrome Medications inhalational spacing deviceIndications: COPD with chronic bronchitis (HC) For home use. 1 Each 01/15/20 21 Active blood sugar diagnostic stripIndications:I mpaired glucose tolerance Dispense item covered by pt ins. prediabetes 100 Each 3 07/21/19 24 Active albuterol HFA (PRO-AIR; VENTOLIN; PROVENTIL) 90 mcg/actuation inhalerIndications :Acute dyspnea,COPD exacerbation (HC) Inhale 2 Puffs by mouth 4 times daily if needed for Wheezing 1st choice. 1 Each 05/31/19 25 Active desmopressin 0.2 mg tabletIndications: Urinary incontinence, unspecified type TAKE 1 TABLET AT BEDTIME 90 Tablet 3 07/17/19 25 Active hydroCHLOROthiazid e 25 mg tabletIndications: Essential hypertension Take 1 Tablet (25 mg) by mouth once daily. 90 Tablet 3 07/21/19 25 Active potassium chloride (Klor-Con) 20 mEq packetIndications: Essential hypertension Mix 1 Packet (20 mEq) in liquid then take by mouth once daily with a meal. 90 Packet 3 07/21/19 25 Active simvastatin 20 mg tabletIndications: Hyperlipidemia, unspecified hyperlipidemia type Take 1 Tablet (20 mg) by mouth at bedtime. 90 Tablet 3 07/21/19 25 Active lisinopriL 5 mg tabletIndications: Essential hypertension TAKE 1 TABLET DAILY 90 Tablet 2 08/18/19 25 Active LORazepam 0.5 mg tabIndications:Gen eralized anxiety disorder,Undiffere ntiated schizophrenia (HC) Take 1 Tablet (0.5 mg) by mouth once daily if needed for Anxiety. #20 tabs to last 30 days. 20 Tablet 2 08/30/19 25 Active chlorhexidine (PERIDEX) 0.12 % solutionIndication s:Chronic dental infection Swish and spit 10 mL by mouth two times daily. 473 mL 01/26/20 25 Active esomeprazole delayed release capsule (NEXIUM) 20 mgIndications:Eyeletter edgar GERD Take 1 Capsule (20 mg) by mouth once daily before a meal. 90 Capsule 1 01/26/20 25 Active nicotine 21 mg/24 hr (NICODERM; HABITROL) 21 mg/24 hr patchIndications:T obacco use disorder Apply 1 Patch on dry, clean, hairless skin once daily. 60 Patch 2 01/26/20 25 Active Additional Information Patient not taking.Reported on 02/25/2025 Diaper,Brief, Adult,Disposable (Prevail Brief Large)Indications: Urinary incontinence, unspecified type WAIST 36 100 Each 11 02/05/20 25 Active busPIRone (BUSPAR) 30 mg tabletIndications: Generalized anxiety disorder Take 1 Tablet (30 mg) by mouth two times daily. 180 Tablet 1 02/26/20 25 Active cloZAPine 100 mg tabletIndications: Undifferentiated schizophrenia (HC) TAKE 125MG (1X100,1X25) BY MOUTH EVERY MORNING AND TAKE 250MG (2X100,2X25) BY MOUTH EVERY NIGHT 84 Tablet 5 02/26/20 25 Active cloZAPine 25 mg tabletIndications: Undifferentiated schizophrenia (HC) Take 1 Tablet (25 mg) by mouth once daily in the morning. Take with 100 mg tab in the morning for total of 125 mg every morning. 28 Tablet 5 02/26/20 25 Active cloZAPine 50 mg tabletIndications: Undifferentiated schizophrenia (HC) TAKE 125 MG (1X100, 1x25) BY MOUTH EVERY MORNING AND TAKE 250 MG (1X50,2X100) BY MOUTH EVERY EVENING 28 Tablet 5 02/26/20 25 Active vilazodone 40 mg tabletIndications: Generalized anxiety disorder,Moderate episode of recurrent major depressive disorder (HC) Take 1 Tablet (40 mg) by mouth once daily. 90 Tablet 1 02/26/20 25 Active cloZAPine 100 mg tabletIndications: Undifferentiated schizophrenia (HC) TAKE 125MG (1X100,1X25) BY MOUTH EVERY MORNING AND TAKE 250MG (2X100,2X25) BY MOUTH EVERY NIGHT 84 Tablet 5 08/30/19 25 025 Discontin ued(Reord er (E-cancel not sent)) cloZAPine 25 mg tabletIndications: Undifferentiated schizophrenia (HC) Take 1 Tablet (25 mg) by mouth once daily in the morning. Take with 100 mg tab in the morning for total of 125 mg every morning. 28 Tablet 5 08/30/19 25 025 Discontin ued(Reord er (E-cancel not sent)) cloZAPine 50 mg tabletIndications: Undifferentiated schizophrenia (HC) TAKE 125 MG (1X100, 1x25) BY MOUTH EVERY MORNING AND TAKE 250 MG (1X50,2X100) BY MOUTH EVERY EVENING 28 Tablet 5 08/30/19 25 025 Discontin ued(Reord er (E-cancel not sent)) vilazodone 40 mg tabletIndications: Generalized anxiety disorder,Moderate episode of recurrent major depressive disorder (HC) Take 1 Tablet (40 mg) by mouth once daily. 90 Tablet 1 08/30/19 25 025 Discontin ued(Reord er (E-cancel not sent)) busPIRone 30 mg tabletIndications: Generalized anxiety disorder Take 1 Tablet (30 mg) by mouth two times daily. 180 Tablet 1 09/02/19 25 025 Discontin ued(Reord er (E-cancel not sent)) Active Problems Problem Noted Date Diagnosed Date Type 2 diabetes mellitus wit hout complication, without long-term current use of insulin 07/23/2024 COPD with chronic bronchitis 07/21/2023 Impaired fasting glucose 01/14/2021 Generalized anxiety disorder 10/29/2019 Controlled substance agreement signed 04/19/2017 Overview (04/19/2017): 03/14/17 signed .Katarina Dulek DNP, DIAMOND PICKER, ART DIRECTOR/psyciatry/hc Adjustment disorder with mixed anxiety and depre ssed mood 01/10/2017 Chronic constipation 01/05/2017 Chronic GERD 01/05/2017 Family history of diabetes mellitus (DM) 016 Absence of bladder continence 08/13/2014 Leukocytosis 12/20/2011 Overview (12/20/2011): Oncology consutlt 11/12, no further work up, probably secondary to meds Hyperlipidemia LDL goal < 100 11/04/2009 Unspecified schizophrenia, unspecified condition 08/10/2006 Unspecified essential hypertension 08/10/2006 Tobacco use disorder 08/05/2006 Resolved Problems Problem Noted Date Diagnosed Date Resolved Date Tobacco dependence 10/24/2017 Anxiety 05/02/2017 01/14/2021 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 Please look for [facility] Care Goal Contract in Chart Review/ Letters and support this effort. Please direct questions to Care Guide Vee Trinidad Phone number [phone] Type II or unspecified type diabetes mellitus without mention of complication, not stated as uncontrolled 08/10/2006 01/23/2007 Encounters Date Type Department Care Team Description 02/25/2025 1:45 PM PROGRAM DEVELOPER Office Visit [facility] [address] [place] [address] Estefania Cornejo MD Medication Management (Anxiety has been really high lately, especially today) 02/25/2025 Travel 02/24/2025 Refill [facility] [address] [place] [address] Estefania Cornejo MD Refill Request (Vilazodone) 02/21/[address] [phone] Prema River MD Follow Up 02/14/2025 Telephone [facility] [address] [place] [address] Estefania Cornejo MD clozapine management 02/13/2025 1:00 PM PROGRAM DEVELOPER Orders Only [facility] [address] [facility] [place] [address] Lab, [place] <No scans attached> 02/13/[address] [phone] Prema River MD Procedure (colonoscopy) 02/13/2025 Travel 01/30/[address] [address] Prema River MD Refill Request (Prevail Brief Large) 01/28/[address] [phone] Prema River MD Results 01/25/2025 11:30 AM CDT Office Visit [address] [phone] Prema River MD Medication Management; Diabetes 01/25/2025 Travel 01/16/2025 Telephone [facility] [address] [place] [address] Estefania Cornejo MD clozapine management 01/14/2025 2:30 PM CDT Orders Only [address] [address] Lab, [place] <No scans attached> 01/14/2025 Travel 12/14/2024 Telephone [facility] [address] [place] [address] Estefania Cornejo MD clozapine managment 12/13/2024 3:15 PM CDT Orders Only [place] [address] [place] [address] Paulina Leon <No scans attached> 12/13/2024 Travel from Last 3 Months Immunizations Immunization Administration Dates Next Due COVID-19 VACCINE SPIKEVAX (M ODERNA 50MCG/0.5ML) 12YO+ PFS 01/20/2024,01/19/2023 COVID-19 vaccine (Pfizer-Bio NTech 30mcg/0.3mL) 12YO+ BIVALENT PF, MDV 06/07/2022 COVID-19 vaccine (Pfizer-Bio NTech 30mcg/0.3mL) 12YO+ KENIA-SUCROSE PF, MDV 08/20/2021 COVID-19 vaccine (Pfizer-Bio NTech 30mcg/0.3mL) PF, MDV 04/16/2021,08/06/2020,07/16/2020 INFLUENZA, IIV3 PF (AGE >= 6 MO) 01/25/2025,01/02 Influenza A (H1N1), Inactivated 03/12/2009 Influenza A (H1N1), Inactiva gina (Age >=3 Years) 03/12/2009 Influenza, IIV3 (Age 6-35 mos) 01/22/2016,2010,03/12/2009 Influenza, IIV3 (Age >=3 years) 01/22/20 16,03/15/2013,02/19/2013,2011,12/11/2010,01/15/2010,03/12/2009,1 Influenza, IIV4 01/19/2023, 3,01/14/2021,2019,12/15/2018,01/05/2017,01/06/2015,1 ,12/06/2013 Influenza, IIV4 (=>6mos) MDV 01/22/2022 Pneumococcal Conj 20-valent (Prevnar 20) 06/07/2022 Pneumococcal Poly,23-Valent (Pneumovax) 01/14/2021 Td (Age >=7 Years) 08/18/1999 Td, Preservative Free (age > = 7 Years) 08/02/2018 Tdap 06/06/2008 Zoster (Shingrix-RZV, recombinant) 08/20/2020, Family History Medical History Relation Name Comments Diabetes Father Heart Disease Father Good Health Mother Relation Name Status Comments Father Mother Alive Social History Tobacco Use Types Packs/Day Years Used Date Smoking Tobacco: Every Day Cigarettes 1 45.9 Started: 1978 Smokeless Tobacco: Never Tobacco Cessation:Ready to Q uit: No; Counseling Given: Yes Comments:Would like to quit. Alcohol Use Standard Drinks/Week Comments Yes 0 (1 standard drink = 0.6 oz pur e alcohol) once in awhile PHQ-2 Answer Date Recorded PHQ-2 TOTAL SCORE 2 02/25/2025 Social Connections Answer Date Recorded Do you often feel lonely or isolated from those around you? 0 08/09/2023 Alcohol Use Answer Date Recorded How often do you have a drink containing alcohol ? 1 11/09/2021 How many drinks containing a lcohol do you have on a typical day when you are drinking? 0 11/09/2021 How often do you have five or more drinks on one occasion? 0 11/09/2021 Financial Resource Strain Answer Date R ecorded Difficulty of Paying Living Expenses 3 07/21/2023 Difficulty of Paying Living Expenses Not on file 07/21/2023 Food Insecurity Answer Date Recorded Do you worry your food will run out before you are able to buy more? 1 08/09/2023 Transportation Needs Answer Date Record ed Does lack of transportation keep you from medica l appointments? 1 08/09/2023 Does lack of transportation keep you from work, meetings or getting things that you need? 1 08/09/2023 Housing Stability Answer Date Recorded What is your housing situation today? 2 08/09/2023 Utilities Answer Date Recorded Do you have trouble paying f or utilities (for example, heat, electricity, water, phone)? 1 08/09/2023 Sex and Gender Information Value Date Recorded Sex Assigned at Not on file Legal Sex Male 6:06 AM PROGRAM DEVELOPER Gender Identity Not on file Sexual Orientation Not on file Occupation Industry Job Start Date Job End Date unemployed Not on file Not on file Not on file Last Filed Vital Signs Vital Sign Reading Time Taken Comments Blood Pressure 113/82 02/25/2025 1:32 PM PROGRAM DEVELOPER Pulse 94 02/25/2025 1:32 PM PROGRAM DEVELOPER Temperature 36.6 C (97.8 F) 05/31/2024 5:59 PM PROGRAM DEVELOPER Respiratory Rate 20 01/25/2025 11:3 4 AM CDT Oxygen Saturation 92% 07/20/2024 10: 36 AM CDT Inhaled Oxygen Concentration - - Weight 92.4 kg (203 lb 11.2 oz) 02/25/2025 1:32 PM PROGRAM DEVELOPER Height 173.4 cm (5' 8.25) 01/25/2025 1 1:34 AM CDT Body Mass Index 30.75 01/25/2025 11:34 AM CDT Plan of Treatment Upcoming Encounters Date Type Department Care Team (Late st Contact Info) Description 03/13/2025 2:15 PM PROGRAM DEVELOPER Orders Only [facility] [address] [place] [address] Lab, [place] 07/29/2025 1:00 PM CDT Office Visit [address] [phone] Prema River MD [address] [place] [address] 08/28/2025 11:15 AM CDT Office Visit [facility] [address] [place] [address] Estefania Cornejo MD [address] [place] [address] Health Maintenance Due Date Last Done Comments Hepatitis B series for 19+ ( 1 of 3 - 19+ 3-dose series) 1985 RSV vaccine for adults or (1 - Risk 50-74 years 1-dose series) [address] (for lung CA) ag e 50-80 07/13/2023 07/12/2022 COVID-19 vaccine series ( season) 2024 01/20/2024, 01/19/2023, 06/07/2022, Additional history exists BMI (ht and wt on same day) for age 18+ 01/25/2026 01/25/2025, 07/20/2024, 01/20/2024, Additional history exists Depression screening for age 12+ 02/25/2026 02/25/2025, 08/29/2024, 03/29/2024, Additional history exists Colonoscopy through age 75 07/22/2026 07/22/2016, Tetanus booster 08/02/2028 08/02/2018, 03/08/2008, 08/18/1999 Lipids for age 45-75 01/25/2030 01/25/2025, 04/02/2024, 06/07/2022, Additional history exists Hepatitis C screening for ag e 18-79 Completed 09/24/2016 Zoster (shingles) series for age 50+ Completed 08/20/2020, 06/18/2020 HIV for age 15-65 Completed 06/07/2022 Pneumococcal series for age 50+ Completed , 01/14/2021 Influenza Vaccine Completed 01/25/2025, , 01/19/2023, Additional history exists Procedures Procedure Name Priority Date/Time Associated Diagnosis Comments CBC WITH AUTO DIFFERENTIAL Routine 02/13/2025 12:37 PM PROGRAM DEVELOPER 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 current use of clozapine CBC WITH AUTO DIFFERENTIAL Routine 02/13/2025 12:37 PM PROGRAM DEVELOPER long-term current use of clozapine HEPATIC FUNCTION PANEL Routine 01/25/2025 12:57 PM CDT Type 2 diabetes mellitus without complication, without long-term current use of insulin (HC) LIPID PANEL W REFLEX MEASURED LDL Routine 01/25/2025 12:57 PM CDT Type 2 diabetes mellitus without complication, without long-term current use of insulin (HC) HEMOGLOBIN A1C Routine 01/25/2025 12:57 PM CDT Type 2 diabetes mellitus without complication, without long-term current use of insulin (HC) CBC WITH AUTO DIFFERENTIAL Routine 01/14/2025 1:48 PM CDT CBC WITH AUTO DIFFERENTIAL Routine 12/13/2024 2:26 PM CDT long-term current use of clozapine CBC WITH AUTO DIFFERENTIAL Routine 12/13/2024 2:26 PM CDT 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 current use of clozapine CT CHEST SCREENING LOW DOSE WO CONTRAST Routine 07/12/2022 1:43 PM CDT Encounter for screening for lung cancer Personal history of nicotine dependence LC HIV-1/O/2, 4TH GENERATION Routine 06/07/2022 1:50 PM PROGRAM DEVELOPER Unspecified essential hypertension ANTI HCV Routine 09/24/2016 3:00 PM CDT Exposure to hepatitis COLONOSCOPY SCREENING Routine 07/22/2016 Weight loss from Last 3 Months or Most Recently Relevant to Health Maintenance Results * (ABNORMAL) CBC WITH AUTO DIFFERENTIAL (02/13/2025 12:37 PM PROGRAM DEVELOPER) Only the most recent of2 resultswithin the time period is included. WHITE BLOOD CELL COUNT 9.5 3.8 - 10.8 Thousand/u L 02/14/2025 4:32 AM PROGRAM DEVELOPER [facility] RED BLOOD CELL COUNT 4.68 4.20 - 5.80 Million/uL 02/14/2025 4:32 AM PROGRAM DEVELOPER [facility] HEMOGLOBIN 15.0 13.2 - 17.1 g/dL 02/14/2025 4:32 AM PROGRAM DEVELOPER [facility] HEMATOCRIT 44.1 38.5 - 50.0 % 02/14/2025 4:32 AM PROGRAM DEVELOPER [facility] MCV 94.2 80.0 - 100.0 fL 02/14/2025 4:32 AM PROGRAM DEVELOPER [facility] MCH 32.1 27.0 - 33.0 pg 02/14/2025 4:32 AM PROGRAM DEVELOPER [facility] MCHC 34.0 32.0 - 36.0 g/dL 02/14/2025 4:32 AM PROGRAM DEVELOPER [facility] Comment: For adults, a slight decrease in the calculated MCHC value (in the range of 30 to 32 g/dL) is most likely not clinically significant; however, it should be interpreted with caution in correlation with other red cell parameters and the patient's clinical condition. RDW 13.8 11.0 - 15.0 % 02/14/2025 4:32 AM PROGRAM DEVELOPER [facility] PLATELET COUNT 237 140 - 400 Thousand/u L 02/14/2025 4:32 AM PROGRAM DEVELOPER [facility] MPV 10.9 7.5 - 12.5 fL 02/14/2025 4:32 AM PROGRAM DEVELOPER [facility] NEUTROPHILS 73.7 % 02/14/2025 4:32 AM PROGRAM DEVELOPER [facility] LYMPHOCYTES 19.7 % 02/14/2025 4:32 AM PROGRAM DEVELOPER [facility] MONOCYTES 6.0 % 02/14/2025 4:32 AM PROGRAM DEVELOPER [facility] EOSINOPHILS 0.1 % 02/14/2025 4:32 AM PROGRAM DEVELOPER [facility] BASOPHILS 0.5 % 02/14/2025 4:32 AM PROGRAM DEVELOPER [facility] ABSOLUTE NEUTROPHILS 7002 1500 - 7800 cells/uL 02/14/2025 4:32 AM PROGRAM DEVELOPER [facility] ABSOLUTE LYMPHOCYTES 1872 850 - 3900 cells/uL 02/14/2025 4:32 AM PROGRAM DEVELOPER [facility] ABSOLUTE MONOCYTES 570 200 - 950 cells/uL 02/14/2025 4:32 AM PROGRAM DEVELOPER [facility] ABSOLUTE EOSINOPHILS 10(L) 15 - 500 cells/uL 02/14/2025 4:32 AM PROGRAM DEVELOPER [facility] ABSOLUTE BASOPHILS 48 0 - 200 cells/uL 02/14/2025 4:32 AM PROGRAM DEVELOPER [facility] Blood BLOOD SPECIMEN / Unknown [facility] / Unknown 02/13/2025 12:37 PM PROGRAM DEVELOPER 02/13/2025 12:37 PM PROGRAM DEVELOPER Estefania Cornejo MD HEMATOLOGY Final Result [facility] [address] [place] [address], * (ABNORMAL) HEMOGLOBIN A1C (01/25/2025 12:57 PM CDT) HEMOGLOBIN A1C 6.4(H) <5.7 % 01/26/2025 5:41 AM CDT [facility] Comment: For someone without known diabetes, a hemoglobin A1c value between 5.7% and 6.4% is consistent with prediabetes and should be confirmed with a follow-up test. For someone with known diabetes, a value <7% indicates that their diabetes is well controlled. A1c targets should be individualized based on duration of diabetes, age, comorbid conditions, and other considerations. This assay result is consistent with an increased risk of diabetes. Currently, no consensus exists regarding use of hemoglobin A1c for diagnosis of diabetes for children. Blood BLOOD SPECIMEN / Unknown [facility] / Unknown 01/25/2025 12:57 PM CDT 01/25/2025 12:57 PM CDT Prema River MD CHEMISTRY Final Result [facility] [address] [place] [address], * LIPID PANEL W REFLEX MEASURED LDL (01/25/2025 12:57 PM CDT) CHOLESTEROL, TOTAL 126 <200 mg/dL 01/26/2025 4:13 AM CDT [facility] TRIGLYCERIDES 88 <150 mg/dL 01/26/2025 4:13 AM CDT [facility] HDL CHOLESTEROL 49 > OR = 40 mg/dL 01/26/2025 4:13 AM CDT [facility] NON HDL CHOLESTEROL 77 <130 mg/dL (calc) 01/26/2025 4:13 AM [facility] Comment: For patients with diabetes plus 1 major ASCVD risk factor, treating to a non-HDL-C goal of <100 mg/dL (LDL-C of <70 mg/dL) is considered a therapeutic option. CHOL/HDLC RATIO 2.6 <5.0 (calc) 01/26/2025 4:13 AM CDT [facility] LDL-CHOLESTEROL 60 mg/dL (calc) 01/26/2025 4:13 AM [facility] Comment: Reference range: <100 Desirable range <100 mg/dL for primary prevention; <70 mg/dL for patients with CHD or diabetic patients with > or = 2 CHD risk factors. LDL-C is now calculated using the Viktor calculation, which is a validated novel method providing better accuracy than the Friedewald equation in the estimation of LDL-C. Eder CASH et al. JEF. 2013;310(19): 0539-5798 (http://education.ApnaPaisa/faq/OCY421) Blood BLOOD SPECIMEN / Unknown [facility] / Unknown 01/25/2025 12:57 PM CDT 01/25/2025 12:57 PM CDT Prema River MD CHEMISTRY Final Result [facility] [address] [address], * LIVER PANEL (HEPATIC FUNCTION PANEL) (01/25/2025 12:57 PM CDT) ALBUMIN 4.4 3.6 - 5.1 g/dL 01/26/2025 4:13 AM CDT [facility] PROTEIN, TOTAL 6.7 6.1 - 8.1 g/dL 01/26/2025 4:13 AM CDT [facility] BILIRUBIN, TOTAL 0.7 0.2 - 1.2 mg/dL 01/26/2025 4:13 AM CDT [facility] BILIRUBIN, DIRECT 0.1 < OR = 0.2 mg/dL 01/26/2025 4:13 AM CDT [facility] BILIRUBIN, INDIRECT 0.6 0.2 - 1.2 mg/dL (calc) 01/26/2025 4:13 AM CDT [facility] ALKALINE PHOSPHATASE 103 35 - 144 U/L 01/26/2025 4:13 AM CDT [facility] ALT 13 9 - 46 U/L 01/26/2025 4:13 AM CDT [facility] AST 13 10 - 35 U/L 01/26/2025 4:13 AM CDT [facility] GLOBULIN 2.3 1.9 - 3.7 g/dL (calc) 01/26/2025 4:13 AM CDT [facility] ALBUMIN/GLOBULIN RATIO 1.9 1.0 - 2.5 (calc) 01/26/2025 4:13 AM CDT [facility] Blood BLOOD SPECIMEN / Unknown [facility] / Unknown 01/25/2025 12:57 PM CDT 01/25/2025 12:57 PM CDT Prema River MD CHEMISTRY Final Result [facility] [address] [place] [address], [place] [phone] * (ABNORMAL) CBC AND DIFFERENTIAL (01/14/2025 1:48 PM CDT) WHITE BLOOD CELL COUNT 14.1(H) 3.8 - 10.8 Thousand/ uL [facility] RED BLOOD CELL COUNT 4.77 4.20 - 5.80 Million/u L [facility] HEMOGLOBIN 15.2 13.2 - 17.1 g/dL [facility] HEMATOCRIT 45.8 38.5 - 50.0 % [facility] MCV 96.0 80.0 - 100.0 fL [facility] MCH 31.9 27.0 - 33.0 pg [facility] MCHC 33.2 32.0 - 36.0 g/dL [facility] Comment: For adults, a slight decrease in the calculated MCHC value (in the range of 30 to 32 g/dL) is most likely not clinically significant; however, it should be interpreted with caution in correlation with other red cell parameters and the patient's clinical condition. RDW 13.8 11.0 - 15.0 % [facility] PLATELET COUNT 285 140 - 400 Thousand/ uL [facility] MPV 10.3 7.5 - 12.5 fL [facility] ABSOLUTE NEUTROPHILS 10,730(H) 1,500 - 7,800 cells/uL [facility] ABSOLUTE LYMPHOCYTES 2,482 850 - 3,900 cells/uL [facility] ABSOLUTE MONOCYTES 804 200 - 950 cells/uL [facility] ABSOLUTE EOSINOPHILS 14(L) 15 - 500 cells/uL [facility] ABSOLUTE BASOPHILS 71 0 - 200 cells/uL [facility] NEUTROPHILS 76.1 % [facility] LYMPHOCYTES 17.6 % [facility] MONOCYTES 5.7 % [facility] EOSINOPHILS 0.1 % [facility] BASOPHILS 0.5 % [facility] 01/14/2025 1:48 PM CDT 01/14/2025 3:51 PM CDT Estefania Cornejo MD HEMATOLOGY Final Result [facility] [address] [place] [address], [facility] [address] [place] [address] * CT CHEST SCREENING LOW DOSE WO CONTRAST [[id number]] -- NOTE: to meet [facility] requirements, this order ONLYto be placed by the person completing the Shared Decision Making Visit (07/12/2022 1:43 PM CDT) Anatomical Region Laterality Modality Computed Tomogra phy Impressions 07/13/2022 6:43 AM CDT 1. Bronchiectasis with linear scarring or peribronchial inflammation anterior right upper lobe. No other significant pulmonary pathology. 2. Remaining CT of the chest negative. BI-RADS Category 1: Negative. No pulmonary nodules. Recommend continued annual screening with LD CT in 12 months. Please note that all CT scans at this facility use dose modulation, iterative reconstruction and/or weight-based dosing when appropriate to reduce radiation dose to as low as reasonably achievable. Dictated by: Rosa Posey MD @07/12/2022 1:56:53 PM / CRL:brian Narrative 07/13/2022 6:43 AM CDT For Patients: As a result of the Century Cures Act, medical imaging exams and procedure reports are released immediately into your electronic medical record. You may view this report before your referring provider. If you have questions, please contact your health care provider. CT CHEST SCREENING LOW-DOSE WITHOUT CONTRAST, 07/12/2022 INDICATION: Lung cancer screening. TECHNIQUE: CT chest without contrast. COMPARISON: 11/27/2010. FINDINGS: Cardiovascular Structures: Heart size is normal. Thoracic aorta and main pulmonary artery are normal in caliber. Mediastinum and Jil: No sign of mass or adenopathy. Thyroid normal. Lungs: Image blurring due to respiratory motion. Bronchiectasis and linear scarring or peribronchial inflammation anterior right upper lobe. No pulmonary nodules, mass or consolidation. The airways are clear. Pleura and Pericardium: No effusions. Chest Wall and Axilla: No mass or adenopathy. Bones: Degenerative spine. No lytic or osteoblastic lesions. Upper Abdomen: Unremarkable. Prema River MD CT Final Result * LC HIV-1/O/2, 4TH GENERATION (06/07/2022 1:50 PM PROGRAM DEVELOPER) Pathologist [facility] HIV Scr 4th Gen Non Reactive Non Reactive 06/10/2022 1:09 PM PROGRAM DEVELOPER [facility] ([facility]) Comment: HIV Negative HIV-1/HIV-2 antibodies and HIV-1 p24 antigen were NOT detected. There is no laboratory evidence of HIV infection. Blood BLOOD SPECIMEN / Unknown Venipuncture / Unknown 06/07/2022 1:50 PM PROGRAM DEVELOPER 06/07/2022 1:52 PM PROGRAM DEVELOPER Narrative [facility] ([facility]) - 06/10/2022 1:09 PM PROGRAM DEVELOPER Performed at: [address] [place] [address] [id number] Stemming Machine Operator: Jeff Leiva MD, Phone: [phone] Prema River MD LABORATORY Final Result [facility] ([facility]) [address] [place] [id number] * ANTI HCV (09/24/2016 3:00 PM CDT) [facility] HEPATITIS C ANTIBODY Non-Reacti ve Non-Reacti ve 09/24/2016 7:37 PM CDT [facility] LABORATORY Blood BLOOD SPECIMEN / Unknown Venipuncture / Unknown 09/24/2016 3:00 PM CDT 09/24/2016 3:02 PM CDT Narrative [facility] - 09/24/2016 7:37 PM CDT Antibodies to HCV not detected; does not exclude the possibility of exposure to HCV. us Prema River MD SEND OUTS Final Result [facility] [address] [place] [address], * COLONOSCOPY SCREENING (07/22/2016) us Kush Camejo MD GI PROCEDURE ORD Final Result from Last 3 Months or Most Recently Relevant to Health Maintenance Insurance MEDICARE PB ONLY MEDICARE PART B HB ONLY MEDICARE PART A HB ONLY [facility] MEDICARE PART B HB ONLY Care Teams Chief Security Officer Relationship Specialty Start Date End Date Prema River MD [address] [facility] [place] [id number] PCP - General Family Practice 01/31/24 Prema River MD [address] [facility] [place] [address] 08/03/22
[2025-03-10 10:10] VITALS: BP 110/69; PULSE 122; RESP 20; TEMP 37; O2SAT 96; BMI 30.4
--- NOTE | 2025-03-10 10:31 | CRLHL7_ITS ---
For Patients: As a result of the Century Cures Act, medical imaging exams and procedure reports are released immediately into your electronic medical record. You may view this report before your referring provider. If you have questions, please contact your health care provider. INDICATION: Fall yesterday COMPARISON: None. TECHNIQUE: Three views left ankle. FINDINGS: There is an acute fracture of the left distal fibula the begins at the level of the plafond and extends obliquely upwards. There is about 4 millimeters of displacement. No other fracture seen. There is some lucency at the base of the medial malleolus that could be a nondisplaced or incomplete fracture. No dislocation. There is some mild asymmetry of the ankle mortise on these nonweightbearing images. No focal bone lesions. Normal bone mineralization. Soft tissue swelling. No foreign body. IMPRESSION: 1. Mildly displaced left distal fibular fracture. 2. Possible nondisplaced or incomplete medial malleolar fracture. Dictated by Carolina Fraire MD @ 03/10/2025 10:53:18 AM (Electronically Signed)
[2025-03-10 10:53] VITALS: PULSE 116; O2SAT 96
--- OUTSIDE RECORDS SUMMARY | 2025-03-10 11:07 | XMS_ITS | CCD ---
Author Organization Unknown Care Team Providers Care Cosmetology Teacher Name Role Phone Lean Manufacturing Coordinator, [place] Primary Care Provider Unava ilable Unavailable Chronic Care Management Unavaila ble Summary Purpose DataExchange Insurance Providers Payer name Policy type / Coverage type Covered constitution party ID Effective Begin Date Effective End Date Medicare [place] Medicare Part B [id number] Unknown Unknown Ucare Medicare Part B [id number] Unknown Unknown Family History Family History data [...]
--- OUTSIDE RECORDS SUMMARY | 2025-03-10 11:07 | XMS_ITS | CCD ---
Author Organization Unknown Care Team Providers Care Rolled Gold Plater Name Role Phone Certified Vehicle Fire Investigator, [place] Primary Care Provider Unava ilable Unavailable Chronic Care Management Unavaila ble Summary Purpose DataExchange Insurance Providers Payer name Policy type / Coverage type Covered alliance party ID Effective Begin Date Effective End Date [place] Medicare Part B [id number] Unknown Unknown U[employer] Medicare Part B [id number] Unknown Unknown Family History Family History data [...]
--- NOTE | 2025-03-10 11:26 | ED.LOWEXIN ---
HPI - Extremity Injury (Lower) General Date Seen: 03/10/25 Chief Complaint: Extremity Pain/Injury, Lower Stated Complaint: Possible broken left ankle Time Seen by Provider: 03/10/25 10:42 Source: patient Mode of arrival: ambulatory Limitations: no limitations History of Present Illness HPI Narrative: Patient is a 59-year-old male presenting for left ankle pain. He states he was at work when he tripped and fell and injured his left ankle. Has had pain since then. Has been able to ambulate with a cane. Typically does not use a cane.. Denies any numbness. States all the pain is to the lateral aspect of the ankle. Denies injuring his ankle in the past. No other concerns noted Related Data Home Medications ?Medication ?Instructions ?Recorded ?Confirmed buspirone 30 mg tablet 30 mg PO BID 08/03/22 03/10/25 clozapine 100 mg tablet 100 mg PO QAM 08/03/22 03/10/25 clozapine 100 mg tablet 200 mg PO QPM 08/03/22 03/10/25 clozapine 50 mg tablet 50 mg PO QPM 08/03/22 03/10/25 desmopressin 0.2 mg tablet 0.2 mg PO QPM 08/03/22 03/10/25 esomeprazole magnesium 20 mg 20 mg PO DAILY 08/03/22 08/03/22 capsule,delayed release fluticasone propionate 50 1 spray intranasal BID 08/03/22 03/10/25 mcg/actuation nasal spray,suspension hydrochlorothiazide 25 mg tablet 25 mg PO DAILY 08/03/22 03/10/25 lisinopril 5 mg tablet 5 mg PO DAILY 08/03/22 03/10/25 vilazodone 40 mg tablet 40 mg PO DAILY 03/10/25 03/10/25 Previous Rx's ?Medication ?Instructions ?Recorded doxycycline hyclate 100 mg capsule 100 mg PO BID 7 days #14 caps 08/04/22 esomeprazole magnesium 20 mg 20 mg PO DAILY #30 caps 08/04/22 capsule,delayed release hydrochlorothiazide 25 mg tablet 25 mg PO DAILY #30 tabs 08/04/22 lisinopril 5 mg tablet 5 mg PO DAILY #30 tabs 08/04/22 Allergies Allergy/AdvReac Type Severity Reaction Status Date / Time aripiprazole (From [facility]) Allergy Intermediate lost sleep Verified 03/10/25 10:20 and weight haloperidol (From Haldol) Allergy Verified 03/10/25 10:20 Review of Systems Narrative: Pertinent systems reviewed and were negative unless stated in HPI PFSH [facility] Medical History (Updated 03/10/25 @ 12:11 by Brain Basurto DO) Leukocytosis ?D72.829 - Elevated white blood cell count, unspecified (ICD-10) Tobacco use ?Z72.0 - Tobacco use (ICD-10) Anxiety ?F41.9 - Anxiety disorder, unspecified (ICD-10) Schizophrenia ?F20.9 - Schizophrenia, unspecified (ICD-10) Syncope ?R55 - Syncope and collapse (ICD-10) Sinusitis ?J32.9 - Chronic sinusitis, unspecified (ICD-10) Community acquired pneumonia ?J18.9 - Pneumonia, unspecified organism (ICD-10) Social History (Updated 08/03/22 @ 10:54 by Josephine Barber MD) Narrative: Jose is single, no children. 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 Smoking about 1ppd, no concerning ETOH use. Brother in [place] would be medical decision maker if needed. Full Code. Smoking Status: Current every day smoker What tobacco products do you use: cigarettes Smoking packs per day: 1 Smoking cigarettes per day: 20.0 Years smoked: 37 Smoking pack-years: 37.00 Do you use any of these nicotine containing products: E-Cigarettes and Vaping Products Second hand tobacco smoke exposure: No How often do you have a drink containing alcohol: monthly or less Alcohol type: beer How many standard drinks containing alcohol do you have on a typical day: 1 or 2 How often do you have six or more drinks on one occasion: Never AUDIT-C Alcohol total score: 1 Non-prescribed substance use: denies use service: No Exam Narrative: Exam Narrative: Const: Well-nourished, Well-developed, in mild distress Eyes: PERRL, no conjunctival injection, and symmetrical lids HENT: Atraumatic external nose and ears. Moist mucous membranes. CV: Dorsalis pedis pulse +2 bilaterally. MSK: Swelling noted around the left angle tenderness noted to the lateral malleoli. Skin: Warm, Dry. No rashes or lesions. Neuro: Normal Muscle tone, No focal neurological deficits. Psych: Awake, Alert, & Oriented x3. Appropriate mood and affect. Const: Vital Signs, click to edit/add: Vital Signs - 24 hr 03/10/25 10:10 03/10/25 10:53 Temperature 98.6 F Pulse Rate [Pulse Oximeter] 122 H 116 H Respiratory Rate 20 Blood Pressure [Ri ght Upper Arm] 110/69 Pulse Oximetry 96 96 Oxygen Delivery Me thod Room Air Room Air Course Vital Signs Vital signs: Initial Vital Signs Temperature 98.6 F 03/10/25 10:10 Temperature Source Temporal Artery Scan 03/10/25 10:10 Pulse Rate 122 H 03/10/25 10:10 Respiratory Rate 20 03/10/25 10:10 Blood Pressure 110/69 03/10/25 10:10 Blood Pressure Mean 82 03/10/25 10:10 Blood Pressure Position Sitting 03/10/25 10:10 Pulse Oximetry 96 03/10/25 10:10 Oxygen Delivery Method Room Air 03/10/25 10:10 Vital Signs Temperature 98.6 F 03/10/25 10:10 Pulse Rate 122 H 03/10/25 10:10 Respiratory Rate 20 03/10/25 10:10 Blood Pressure 110/69 03/10/25 10:10 Pulse Oximetry 96 03/10/25 10:10 Oxygen Delivery Method Room Air 03/10/25 10:10 Temperature 98.6 F 03/10/25 10:10 Pulse Rate 116 H 03/10/25 10:53 Respiratory Rate 20 03/10/25 10:10 Blood Pressure 110/69 03/10/25 10:10 Pulse Oximetry 96 03/10/25 10:53 Oxygen Delivery Method Room Air 03/10/25 10:53 Medications Administered Medications: Discontinued Medications Generic Name Dose Route Start Last Admin Trade Name Freq PRN Reason Stop Dose Admin Oxycodone HCl 5 mg 03/10/25 10:49 03/10/25 10:53 Oxycodone 5 Mg Tablet PO 03/10/25 10:50 5 mg ONCE ONE Administration MDM - Extremity Injury (Lower) MDM Narrative Medical decision making narrative: Patient is a 59-year-old male presenting for left ankle pain. Concern for fracture. Will x-ray the ankle. Oxycodone given for pain. X-ray interpreted by myself and the radiologist independently shows a nondisplaced left malleoli fractures. There is also a possible right malleolar fracture. Cannot say for certain. I did speak to the on-call ortho PA, Samara, she recommends posterior and sugar-tong splint for the ankle to help keep it stable. This was done. He is neurovascular intact. Will be discharged home with oxycodone. Given information for orthopedic follow-up. Was given crutches. Imaging Data Left ankle x-ray: Attestation: I have reviewed the pertinent imaging results. Radiologist's impression: 1. Mildly displaced left distal fibular fracture. 2. Possible nondisplaced or incomplete medial malleolar fracture. Dictated by Carolina Fraire MD @ 03/10/2025 10:53:18 AM Discharge Plan Discharge Clinical Impression: Ankle fracture, left Qualifiers: Encounter type: initial encounter Fracture type: closed Qualified Code(s): S82.892A - Other fracture of left lower leg, initial encounter for closed fracture Patient Disposition: Home, Self-Care Condition: Stable Instructions: Ankle Fracture (DC) Additional Instructions: Take [id number] pain medication. If that is not working use the oxycodone provided via instymeds. Make sure you are nonweightbearing to that ankle. Follow-up with [facility]. Call them at Prescriptions: No Action clozapine 100 mg tablet 200 mg PO QPM buspirone 30 mg tablet 30 mg PO BID clozapine 50 mg tablet 50 mg PO QPM desmopressin 0.2 mg tablet 0.2 mg PO QPM lisinopril 5 mg tablet 5 mg PO DAILY hydrochlorothiazide 25 mg tablet 25 mg PO DAILY fluticasone propionate 50 mcg/actuation spray,suspension 1 spray INTRANASAL BID esomeprazole magnesium 20 mg capsule,delayed release(DR/EC) 20 mg PO DAILY clozapine 100 mg tablet 100 mg PO QAM doxycycline hyclate 100 mg Capsule 100 mg PO BID 7 Days Qty: 14 0RF lisinopril 5 mg Tablet 5 mg PO DAILY Qty: 30 0RF hydrochlorothiazide 25 mg Tablet 25 mg PO DAILY Qty: 30 0RF esomeprazole magnesium 20 mg capsule,delayed release(DR/EC) 20 mg PO DAILY Qty: 30 0RF vilazodone 40 mg tablet 40 mg PO DAILY Follow Up/Referrals: Prema River MD [Primary Care Provider, Family Practice] Stand Alone Forms: [facility] Info Instructions Procedures Orthopedic Splinting/Casting Left ankle: Side: left Lower Extremity Injury Location: ankle Lower extremity immobilizer: other (Posterior and stirrup splint) Applied by clinician: MD/DO Other Orthopedic Equipment: crutches Conclusion: patient tolerated procedure
[2025-03-10 11:35] VITALS: PULSE 111; O2SAT 94
== END 2025-03-10 12:28 | disposition home or self-care (01) ==
PROVIDERS: Emergency Provider Student in an Organized Health Care Education/Training Program; PCP Family Medicine
DX: S82.62XA Displaced fracture of lateral malleolus of left fibula, initial encounter for closed fracture (principal); F17.210 Nicotine dependence, cigarettes, uncomplicated; W01.0XXA Fall on same level from slipping, tripping and stumbling without subsequent striking against object, initial encounter; Y99.0 Civilian activity done for income or pay
CPT/HCPCS: 73610; 99283; 99285; A9270

== ENCOUNTER 2025-03-21 10:43 | Day surgery (SDC) | payer OTHER, MEDICARE, MEDICAID, SELFPAY ==
[2025-03-21] VITALS (12 sets, daily range): BP systolic 110–153; BP diastolic 75–99; PULSE 80–100; RESP 14–16; TEMP 36.2–36.7; O2SAT 87–98; BMI 33.5
[2025-03-21] MEDS: LACTATED RINGERS 1000 ML 1,000 ML 100 ML IV ×2 (11:10→14:14)
--- NOTE | 2025-03-21 12:08 | W.PM.H&PU ---
History & Physical Update History & Physical Update H&P Reviewed and patient assessed: No changes noted
--- NOTE | 2025-03-21 12:08 | PM.ORPRC ---
Procedure Note Date of procedure: 03/21/25 Procedure: PREOPERATIVE DIAGNOSES: 1. Left bimalleolar ankle fracture, closed, displaced POSTOPERATIVE DIAGNOSES: 1. Left bimalleolar ankle fracture, closed, displaced NAME OF OPERATION: 1. Left bimalleolar ankle fracture open reduction internal fixation SURGEON: Brandin Conley MD FELT HOOKER: Samara Galvan P.A.-C.; An housing assistant property manager was critical for this case to aide in patient positioning, leg manipulation, tissue retraction, closure, and splinting. ANESTHESIA: Spinal with adductor canal popliteal nerve block. EBL: Hand mL IMPLANTS: Arthrex distal fibular locking plate with 3.0 distal locking and 3.5mm proximal locking and nonlocking screws for distal fibula fixation. 4.0 mm she threaded cancellous screws for medial malleolus fixation. TOURNIQUET: 96 minutes at 250 mmHg INDICATIONS: The patient is a pleasant 59-year-old male who sustained a left ankle injury in the recent past with difficulty bearing weight. Workup included x-rays, which revealed an unstable bimalleolar ankle fracture. Given the unstable nature of this injury, surgery was recommended to improve alignment and stablize the ankle. Prior to surgery, the risks and benefits of the procedure were discussed with the patient, all questions were answered, and informed consent was obtained. FINDINGS: Closed, comminuted, displaced distal fibula fracture. Displaced medial malleolus fracture. Intact syndesmosis. PROCEDURE: Patient seen preoperatively and operative site was marked. Regional nerve blocks were performed by anesthesia staff. The patient was then brought to the operating room and placed supine on the operating table. Induction of anesthesia was undertaken. The operative extremity was prepped and draped in the usual sterile fashion. 2 g IV Ancef was administered preoperatively for prophylaxis. A surgical time-out was performed confirming patient identity, surgical site, and surgical procedure. The operative extremity was exsanguinated, and the tourniquet inflated. A longitudinal incision was made along the posterior border of the distal fibula. Incision was carried through the skin and subcutaneous tissues, while protecting any crossing neurologic structures. The fracture was encountered, and cleared of interposed periosteum and fracture hematoma. Fracture site was then thoroughly irrigated with normal saline. The fracture was reduced and temporarily held with a reduction clamp. The appropriate length distal fibula locking plate was selected and provisionally fixed to the distal fibula with a BB Cesar and K-wire. Fluoroscopic images confirmed near anatomic reduction of the fracture and and good placement of the plate. Plate was then fixed proximally with a 3.5 mm bicortical nonlocking screw. Plate was then fixed distally with multiple 3.0 mm unicortical locking screws. An additional 3.5 mm nonlocking screw and 3.5 mm locking screw were placed bicortically proximal to the fracture. There was a small bone fragment anteriorly at the fracture site which was attached to soft tissue. This was then reduced and tied to the plate with a 2. FiberWire hold it in its anatomic position. Fluoroscopic images were obtained confirming appropriate plate position, and screw length. Attention was then directed to the medial fracture. A longitudinal incision was made overlying the medial malleolar fracture. Blunt dissection was utilized to dissect through the subcutaneous tissues to allow us to protect the crossing neurovascular structures. A large vein was traversing the operative field which was tied off with silk ties and ligated. The deep fascia was incised, and the fracture was identified and cleared of interposed periosteum and fracture hematoma. The fracture was reduced and held with a pointed reduction clamp. Two guide pins for the 4-0 cannulated screws were then drilled in a retrograde fashion across the fracture. Fluoroscopic imaging confirmed anatomic reduction of the fracture and good placement of the pins. The pins were then overdrilled and partially-threaded 4.0 mm cannulated screws were secured into position over the pins. Guide wires were removed . Fluoroscopic imaging confirmed anatomic reduction with good compression and good placement of the screws. After confirming appropriate reduction and positioning of the plate and screws using fluoroscopic imaging, an external rotation stress was placed on the ankle to test for syndesmosis stability. External rotation stress imaging revealed a symmetric mortise with no widening of the syndesmosis. At this stage, the wounds were thoroughly irrigated with normal saline. Laterally, deep fascia was closed over the plate using 0 Vicryl [id number] interrupted sutures. The tourniquet was then released . Total tourniquet time was 96 minutes. Hemostasis was achieved electrocautery. Skin incisions were then closed with 2-0 Vicryl inverted interrupted subcutaneous stitches followed by running 3-0 nylon suture. Sterile dressings and a well-padded short-leg splint was applied. The patient was awoken from anesthesia and transferred to the PACU in stable condition. PLAN: 1. Ice and elevation of operative extremity for pain and swelling. 2. Tylenol and oxycodone as needed for pain. 3. Nonweightbearing operative extremity. 4. Keep splint clean and dry. 5. Follow up in Orthopedic Clinic in 10-14 days for wound check and splint removal.
[2025-03-21] MEDS: SODIUM CHLORIDE 0.9 % (FLUSH) 10 ML SYRINGE IVF (12:14)
--- NOTE | 2025-03-21 12:15 | CRLHL7_ITS ---
For Patients: As a result of the Cures Act, medical imaging exams and procedure reports are released immediately into your electronic medical record. You may view this report before your referring provider. If you have questions, please contact your health care provider. Indication: Left Ankle ORIF Technique: Four fluoroscopic images of the left ankle. Fluoroscopic time 33.6 seconds. IMPRESSION: Fluoroscopic guidance for open reduction internal fixation of the distal fibular and distal tibial fractures. Dictated by Sean Molina MD @ 03/21/2025 3:06:30 PM (Electronically Signed)
[2025-03-21] MEDS: MIDAZOLAM HCL 1 MG/ML inj IVP (12:20)
--- NOTE | 2025-03-21 12:23 | SUR.PHASEII ---
TIME?OUT:?1218 PT/RN/MDA?VERIFICATION?OF?SURGICAL?SITE,?PROCEDURE,?AND?CONSENT OBTAINED?PRIOR?TO?INVASIVE?PROCEDURE.
--- NOTE | 2025-03-21 14:22 | W.PM.NB ---
Nerve Block Nerve Block Time Seen by Provider: 12:20 Date Seen: 03/21/25 Type of block requested by surgeon for post-operative analgesia: popliteal Side: left Time out performed: Yes Verification of patient name: Yes Verification of date of : Yes Site marking: site marked Name of person performing procedure: Kalin Continuous monitoring Was continuous monitoring of O2 sat, B/P, radiation monitor, recorded every 15 minutes?: Yes Procedure Checklist: sterile prep, needles and gloves Ultrasound guided. Images saved: Yes Medications given in 5ml increments after negative aspiration: Marcaine %: 0.25 mL: 20 Needle gauge: 20 Patient tolerated procedure well: Yes Additional comments: Needle noted adjacent to nerve Block Charges Block Charge (with Pro Fee): Sciatic Nerve Use of Ultrasound Machine for Block: Yes- US Guidance/pain block
--- NOTE | 2025-03-21 14:23 | P.ANES_ITS ---
Anesthesia Charges Start Date/Time Anesthesia Start Date: 03/21/25 Anesthesia Start Time: 12:30 Stop Date/Time Anesthesia Stop Date: 03/21/25 Anesthesia Stop Time: 15:25 Coding CPT Codes CPT Codes: ANESTH LOWER LEG BONE SURG - 20410 ([id number]) P3 - PATIENT W/SEVERE SYS DISEASE, QK - POLISHING WHEEL REPAIRER 2-4 CNCRNT ANES PROC, QX - FOOD MIXER ASSEMBLER SVC W/ MD MED DIRECTION
--- NOTE | 2025-03-21 14:23 | W.PM.NB ---
Nerve Block Nerve Block Time Seen by Provider: 12:20 Date Seen: 03/21/25 Type of block requested by surgeon for post-operative analgesia: adductor canal Side: left Time out performed: Yes Verification of patient name: Yes Verification of date of : Yes Site marking: site marked Name of person performing procedure: Kalin Continuous monitoring Was continuous monitoring of O2 sat, B/P, court monitor, recorded every 15 minutes?: Yes Procedure Checklist: sterile prep, needles and gloves Ultrasound guided. Images saved: Yes Medications given in 5ml increments after negative aspiration: Marcaine %: 0.25 mL: 15 Needle gauge: 20 Precedex (mcg): 25 Patient tolerated procedure well: Yes Block Charges Block Charge (with Pro Fee): Femoral Nerve Use of Ultrasound Machine for Block: Yes- US Guidance/pain block
--- NOTE | 2025-03-21 14:23 | W.ANESCHARGE ---
Anesthesia Charges Start Date/Time Anesthesia Start Date: 03/21/25 Anesthesia Start Time: 12:30 Stop Date/Time Anesthesia Stop Date: 03/21/25 Anesthesia Stop Time: 15:25 Coding CPT Codes CPT Codes: ANESTH LOWER LEG BONE SURG - 22364 ([id number]) P3 - PATIENT W/SEVERE SYS DISEASE, QK - ARMORED CAR DRIVER 2-4 CNCRNT ANES PROC, QX - HEATING EQUIPMENT INSTALLER SVC W/ MD MED DIRECTION
--- NOTE | 2025-03-21 15:27 | P.ANES_ITS ---
Anesthesia Charges Start Date/Time Anesthesia Start Date: 03/21/25 Anesthesia Start Time: 12:30 Stop Date/Time Anesthesia Stop Date: 03/21/25 Anesthesia Stop Time: 15:25 Coding CPT Codes CPT Codes: ANESTH LOWER LEG BONE SURG - 92073 ([id number]) P3 - PATIENT W/SEVERE SYS DISEASE, QK - PEOP[employer] CRM DEVELOPER 2-4 CNCRNT ANES PROC, QX - MARKET RISK ANALYST SVC W/ MD MED DIRECTION
--- NOTE | 2025-03-21 15:27 | W.ANESCHARGE ---
Anesthesia Charges Start Date/Time Anesthesia Start Date: 03/21/25 Anesthesia Start Time: 12:30 Stop Date/Time Anesthesia Stop Date: 03/21/25 Anesthesia Stop Time: 15:25 Coding CPT Codes CPT Codes: ANESTH LOWER LEG BONE SURG - 56879 ([id number]) P3 - PATIENT W/SEVERE SYS DISEASE, QK - PLANT SAFETY LEADER 2-4 CNCRNT ANES PROC, QX - STRAIGHTENING PRESS OPERATOR HELPER SVC W/ MD MED DIRECTION
== END 2025-03-21 17:11 | disposition home or self-care (01) ==
LOC: OR 10:45
PROVIDERS: PCP Family Medicine; Visit Provider Orthopaedic Surgery
PROC: (CPT 27814; principal; 2025-03-21 12:15)
DX: S82.842A Displaced bimalleolar fracture of left lower leg, initial encounter for closed fracture (principal); G89.18 Other acute postprocedural pain; E11.9 Type 2 diabetes mellitus without complications; I10 Essential (primary) hypertension
CPT/HCPCS: 27814; 01480; 64445; 64447; 73600; 76942; 82962; C1713; J0665; J0690; J2250; J2704; J3010; J3490; J7120